=== PATIENT | female | born 1985 | race Caucasian/White ===

== ENCOUNTER 2016-05-11 21:50 | Emergency (ER) | payer MEDICAID ==
[2016-05-11] MEDS ORDERED: IBUPROFEN 600 MG TABLET PO STA (23:50)
[2016-05-11] MEDS ORDERED: IBUPROFEN 400 MG TABLET PO ONE (23:51)
== END 2016-05-12 02:41 | disposition home or self-care (01) ==
DX: N93.9 Abnormal uterine and vaginal bleeding, unspecified (principal)
CPT/HCPCS: 36415; 84702; 85025; 99283; A9270

== ENCOUNTER 2016-05-13 15:04 | Outpatient (CLI) | payer MEDICAID | END 2016-05-13 15:05 | DX: N93.9 Abnormal uterine and vaginal bleeding, unspecified (principal); L65.9 Nonscarring hair loss, unspecified ==

== ENCOUNTER 2016-05-13 20:53 | Outpatient (CLI) | payer MEDICAID | END 2016-05-13 20:54 | disposition home or self-care (01) | DX: D26.1 Other benign neoplasm of corpus uteri (principal); N93.9 Abnormal uterine and vaginal bleeding, unspecified; L65.9 Nonscarring hair loss, unspecified ==

== ENCOUNTER 2016-09-01 09:46 | Outpatient (CLI) | payer MEDICAID ==
[2016-09-01 13:22] LABS: HEMOGLOBIN A1C 0.66 g/dL
[2016-09-01 13:24] LABS: CALCIUM 9.8 mg/dL (8.5-10.3); CREATININE 0.7 mg/dL (0.4-1.0); POTASSIUM 4.2 mmol/L (3.5-5.0)
== END 2016-09-01 09:47 | disposition home or self-care (01) ==
LOC: LAB.N 09:46
PROVIDERS: ATTEND Physician Assistant
DX: E11.9 Type 2 diabetes mellitus without complications (principal)
CPT/HCPCS: 36415; 80048; 82043; 83036

== ENCOUNTER 2016-09-28 08:49 | Outpatient (CLI) | payer MEDICAID ==
[2016-09-28 13:01] LABS: CHOL/HDL RATIO 4.7 (<4.4); CHOLESTEROL 164 mg/dL; HDL CHOLESTEROL 35 mg/dL; TRIGLYCERIDES 127 mg/dL; VLDL CHOLESTEROL 25 mg/dL
== END 2016-09-28 08:50 | disposition home or self-care (01) ==
LOC: LAB.N 08:49
PROVIDERS: ATTEND Nurse Practitioner Gerontology
DX: E11.9 Type 2 diabetes mellitus without complications (principal)
CPT/HCPCS: 36415; 80061

== ENCOUNTER 2016-09-28 08:52 | Outpatient (CLI) | payer MEDICAID ==
[2016-09-28 12:39] LABS: HCT - HEMATOCRIT 38.4 % (37.0-47.0); HGB - HEMOGLOBIN 12.6 g/dL (12.0-16.0); MEAN CORPUSCULAR HEMOGLOBIN 26.9 pg (27.0-31.0); MEAN CORPUSCULAR HGB CONC 32.8 g/dL (32.0-36.0); MEAN CORPUSCULAR VOLUME 82.2 fL (81.0-99.0); RED BLOOD COUNT 4.67 10^6/uL (4.20-5.40); RED CELL DISTRIBUTION WIDTH 15.7 % (12.0-15.0); WHITE BLOOD COUNT 9.3 x10^3/uL (4.8-10.8)
[2016-09-28 13:30] LABS: THYROID STIMULATING HORMONE 2.79 uIU/mL (0.34-5.60)
[2016-09-28 13:39] LABS: FOLLICLE STIMULATING HORMONE 6.23 mIU/mL
== END 2016-09-28 08:53 | disposition home or self-care (01) ==
LOC: LAB.N 08:52
PROVIDERS: ATTEND Obstetrics & Gynecology
DX: Z13.29 Encounter for screening for other suspected endocrine disorder (principal); E28.2 Polycystic ovarian syndrome; Z13.0 Encounter for screening for diseases of the blood and blood-forming organs and certain disorders involving the immune mechanism
CPT/HCPCS: 36415; 80061; 83001; 84443

== ENCOUNTER 2016-10-22 13:48 | Outpatient (CLI) | payer MEDICAID ==
--- NOTE | 2016-10-22 15:41 | Mammography Report ---
DIGITAL DIAGNOSTIC BILATERAL MAMMOGRAM: 10/22/2016 CLINICAL INDICATION: Right axillary adenopathy. TECHNIQUE: Bilateral CC and MLO views, right true lateral and laterally exaggerated craniocaudal views. This is the patient's baseline examination. FINDINGS: The breasts demonstrate fatty replacement bilaterally. No suspicious masses, clustered microcalcifications, or regions of architectural distortion are identified. Bilateral axillary lymph nodes are noted, which do not appear enlarged. IMPRESSION: INCOMPLETE EXAMINATION. RECOMMENDATION: RIGHT BREAST ULTRASOUND TO EVALUATE THE PALPABLE AXILLARY ABNORMALITY. ULTRASOUND IS SCHEDULED FOR 10/27/2016 AT 12:45PM. BIRADS CATEGORY 0-INCOMPLETE. STANDARD QUALIFYING STATEMENTS 1. This examination was reviewed with the aid of Computer-Aided Detection (CAD). 2. A negative or benign imaging report should not delay biopsy if clinically suspicious findings are present. Consider surgical consultation if warranted. More than 5% of cancers are not identified by imaging. 3. Dense breasts may obscure an underlying neoplasm. JOB #: [id number] EXT JOB #: [id number] [place]
== END 2016-10-22 13:49 | disposition home or self-care (01) ==
LOC: DI 13:48
PROVIDERS: ATTEND Obstetrics & Gynecology
DX: R59.0 Localized enlarged lymph nodes (principal)
CPT/HCPCS: 77066

== ENCOUNTER 2016-10-27 12:37 | Outpatient (CLI) | payer MEDICAID ==
--- NOTE | 2016-10-27 14:04 | Ultrasound Report ---
RIGHT BREAST ULTRASOUND: 10/27/2016 CLINICAL HISTORY: Swelling in the axilla. TECHNIQUE: A high frequency transducer was utilized to evaluate the axilla. 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 FINDINGS: Normal fibrofatty tissue is present. Morphologically normal lymph nodes are incidental. There is no mass, distortion, hyperemia or adenopathy. IMPRESSION: NEGATIVE EXAMINATION. NO SUSPICIOUS FINDINGS. RECOMMENDATION: CLINICAL FOLLOWUP. NEGATIVE IMAGING SHOULD NOT DISSUADE FURTHER EVALUATION OF ANY SUSPICIOUS CHANGES. BIRADS CATEGORY 1-NEGATIVE. JOB #: [id number] EXT JOB #: [id number] [facility]
== END 2016-10-27 12:38 | disposition home or self-care (01) ==
LOC: DI 12:37
PROVIDERS: ATTEND Obstetrics & Gynecology
DX: R59.0 Localized enlarged lymph nodes (principal)
CPT/HCPCS: 76642

== ENCOUNTER 2016-12-06 13:44 | Outpatient (CLI) | payer MEDICAID ==
[2016-12-06 20:15] LABS: HEMOGLOBIN A1C 0.38 g/dL
== END 2016-12-06 13:45 | disposition home or self-care (01) ==
LOC: LAB.N 13:44
PROVIDERS: ATTEND Nurse Practitioner Gerontology
DX: E11.9 Type 2 diabetes mellitus without complications (principal)
CPT/HCPCS: 36415; 83036

== ENCOUNTER 2017-01-04 16:20 | Outpatient (CLI) | payer MEDICAID ==
[2017-01-04 16:38] LABS: BASOPHILS # (AUTO) 0.1 10^3/uL (0.0-0.1); BASOPHILS % (AUTO) 0.5 %; EOSINOPHILS # (AUTO) 0.2 10^3/uL (0.0-0.7); EOSINOPHILS % (AUTO) 1.3 %; HCT - HEMATOCRIT 30.7 % (37.0-47.0); HGB - HEMOGLOBIN 9.9 g/dL (12.0-16.0); LYMPHOCYTES # (AUTO) 4.1 10^3/uL (1.5-3.5); LYMPHOCYTES % (AUTO) 28.1 %; MEAN CORPUSCULAR HEMOGLOBIN 25.8 pg (27.0-31.0); MEAN CORPUSCULAR HGB CONC 32.1 g/dL (32.0-36.0); MEAN CORPUSCULAR VOLUME 80.4 fL (81.0-99.0); MEAN PLATELET VOLUME 6.9 fL (7.9-10.8); MONOCYTES # (AUTO) 0.8 10^3/uL (0.0-1.0); MONOCYTES % (AUTO) 5.2 %; NEUTROPHILS # (AUTO) 9.6 10^3/uL (1.5-6.6); NEUTROPHILS % (AUTO) 64.9 %; RED BLOOD COUNT 3.82 10^6/uL (4.20-5.40); RED CELL DISTRIBUTION WIDTH 15.4 % (12.0-15.0); UNCORRECTED WHITE BLOOD COUNT 14.7 x10^3/uL; WHITE BLOOD COUNT 14.7 x10^3/uL (4.8-10.8)
== END 2017-01-04 16:21 | disposition home or self-care (01) ==
LOC: LAB 16:20
PROVIDERS: ATTEND Obstetrics & Gynecology
DX: N92.1 Excessive and frequent menstruation with irregular cycle (principal)
CPT/HCPCS: 36415; 85025

== ENCOUNTER 2017-03-31 08:00 | Outpatient (CLI) | payer MEDICAID ==
[2017-03-31 19:35] LABS: HB2 TOTAL 11.9 g/dL; HEMOGLOBIN A1C 0.47 g/dL; HEMOGLOBIN A1C % 5.8 % (4.6-6.2)
== END 2017-03-31 08:01 ==
LOC: LAB.N 08:00
PROVIDERS: ATTEND Nurse Practitioner Gerontology
DX: E11.9 Type 2 diabetes mellitus without complications (principal)
CPT/HCPCS: 36415; 83036

== ENCOUNTER 2017-04-14 16:12 | Outpatient (CLI) | payer MEDICAID | END 2017-04-14 16:13 | disposition home or self-care (01) | LOC: LAB.R 16:12 | PROVIDERS: ATTEND Obstetrics & Gynecology | DX: Z11.3 Encounter for screening for infections with a predominantly sexual mode of transmission (principal) | CPT/HCPCS: 87491; 87591 ==

== ENCOUNTER 2017-04-15 14:49 | Outpatient (CLI) | payer MEDICAID | END 2017-04-15 14:50 | disposition home or self-care (01) | LOC: LAB.N 14:49 | PROVIDERS: ATTEND Obstetrics & Gynecology | DX: O20.0 Threatened abortion (principal) | CPT/HCPCS: 36415; 84144; 84702 ==

== ENCOUNTER 2017-06-09 16:23 | Outpatient (CLI) | payer MEDICAID | END 2017-06-09 16:24 | LOC: LAB.R 16:23 | PROVIDERS: ATTEND Nurse Practitioner Gerontology | DX: R07.0 Pain in throat (principal) | CPT/HCPCS: 87070 ==

== ENCOUNTER 2017-08-10 15:23 | Outpatient (CLI) | payer MEDICAID ==
[2017-08-10 18:58] LABS: HGB - HEMOGLOBIN 12.7 g/dL (12.0-16.0); MEAN CORPUSCULAR HEMOGLOBIN 25.7 pg (27.0-31.0); MEAN CORPUSCULAR HGB CONC 31.7 g/dL (32.0-36.0); MEAN CORPUSCULAR VOLUME 81.1 fL (81.0-99.0); MEAN PLATELET VOLUME 7.8 fL (7.9-10.8); RED BLOOD COUNT 4.93 10^6/uL (4.20-5.40); RED CELL DISTRIBUTION WIDTH 17.2 % (12.0-15.0); WHITE BLOOD COUNT 13.1 x10^3/uL (4.8-10.8)
[2017-08-10 19:08] LABS: HB2 TOTAL 13.8 g/dL; HEMOGLOBIN A1C 0.58 g/dL
== END 2017-08-10 15:24 | disposition home or self-care (01) ==
LOC: LAB.N 15:23
PROVIDERS: ATTEND Nurse Practitioner Obstetrics & Gynecology
DX: E11.65 Type 2 diabetes mellitus with hyperglycemia (principal); N73.9 Female pelvic inflammatory disease, unspecified
CPT/HCPCS: 36415; 83036; 85027

== ENCOUNTER 2017-08-10 15:33 | Outpatient (CLI) | payer MEDICAID | END 2017-08-10 15:34 | disposition home or self-care (01) | LOC: LAB.R 15:33 | PROVIDERS: ATTEND Nurse Practitioner Obstetrics & Gynecology | DX: N73.9 Female pelvic inflammatory disease, unspecified (principal) | CPT/HCPCS: 87480; 87510; 87660 ==

== ENCOUNTER 2017-08-10 16:47 | Outpatient (CLI) | payer MEDICAID ==
[2017-08-10] MEDS ORDERED: IOPAMIDOL-300 50 ML VIAL ONE (17:03)
[2017-08-10] MEDS ORDERED: IOPAMIDOL-300 100 ML VIAL ONE (17:03)
[2017-08-10 17:19] LABS: CREATININE 0.8 mg/dL (0.4-1.0)
[2017-08-10] MEDS ORDERED: IOPAMIDOL-300 50 ML VIAL PO ONE (19:00)
[2017-08-10] MEDS ORDERED: IOPAMIDOL-300 100 ML VIAL IVP ONE (19:02)
--- NOTE | 2017-08-10 19:43 | CT Preliminary Report ---
Exam: CT ABDOMEN/PELVIS W/ IMPRESSION: Left ovarian cyst measures 3.3 cm. Recommend a 6-12 week follow-up pelvic ultrasound. [facility] SITE ID: [id number]
--- NOTE | 2017-08-10 19:43 | CT Report ---
EXAM: CT ABDOMEN AND PELVIS EXAM DATE: 08/10/2017 06:58 PM. CLINICAL HISTORY: PELVIC AND PERINEAL PAIN. COMPARISONS: None. TECHNIQUE: Routine helical CT imaging was performed through the abdomen and pelvis. IV contrast: 100 mL Isovue 300. Enteric contrast: Yes. Reconstructions: Coronal and sagittal. In accordance with CT protocol optimization, one or more of the following dose reduction techniques w ere utilized for this exam: automated exposure control, adjustment of mA and/or KV based on patient s ize, or use of iterative reconstructive technique. FINDINGS: Lung Bases: No acute findings. Liver: Normal. No masses. Gallbladder/Bile Ducts: Status post cholecystectomy. No bile duct dilatation. Spleen: Normal. Pancreas: Normal. Adrenal Glands: Normal. Kidneys: Normal. No masses or hydronephrosis. Peritoneal Cavity/Bowel: Normal. No free fluid, free air or adenopathy. No masses or acute inflammato ry process. The appendix is well visualized and normal. Pelvic Organs: The bladder and uterus appear unremarkable. Left ovarian cyst measures 3.3 cm. Vasculature: No aneurysms or other significant abnormality. Bones: No significant abnormality. IMPRESSION: Left ovarian cyst measures 3.3 cm. Recommend a 6-12 week follow-up pelvic ultrasound. [facility] Referring Provider Line: [phone] SITE ID: [id number]
== END 2017-08-10 16:48 | disposition home or self-care (01) ==
LOC: LAB 16:47 → DI 16:48
PROVIDERS: ATTEND Nurse Practitioner Obstetrics & Gynecology
DX: R10.2 Pelvic and perineal pain (principal); N83.202 Unspecified ovarian cyst, left side; E11.65 Type 2 diabetes mellitus with hyperglycemia; N73.9 Female pelvic inflammatory disease, unspecified
CPT/HCPCS: 36415; 74177; 82565; 83036; 85027; 87480; 87510; 87660; Q9967

== ENCOUNTER 2017-08-16 13:10 | Outpatient (CLI) | payer MEDICAID | END 2017-08-16 13:11 | disposition home or self-care (01) | LOC: SC 13:10 | PROVIDERS: ATTEND Internal Medicine Pulmonary Disease | DX: G47.10 Hypersomnia, unspecified (principal); R06.83 Snoring; J34.2 Deviated nasal septum; E66.9 Obesity, unspecified; G43.909 Migraine, unspecified, not intractable, without status migrainosus; Z68.41 Body mass index [BMI] 40.0-44.9, adult; J45.909 Unspecified asthma, uncomplicated; E11.9 Type 2 diabetes mellitus without complications | CPT/HCPCS: 99203; 99212 ==

== ENCOUNTER 2017-08-28 21:00 | Outpatient (CLI) | payer MEDICAID | END 2017-08-28 21:01 | disposition home or self-care (01) | LOC: SC 21:00 | PROVIDERS: ATTEND Internal Medicine Pulmonary Disease | DX: G47.61 Periodic limb movement disorder (principal) | CPT/HCPCS: 95810 ==

== ENCOUNTER 2017-09-19 08:46 | Outpatient (CLI) | payer MEDICAID | END 2017-09-19 08:47 | disposition home or self-care (01) | LOC: SC 08:46 | PROVIDERS: ATTEND Nurse Practitioner Family | DX: R06.83 Snoring (principal); G47.00 Insomnia, unspecified; G47.61 Periodic limb movement disorder | CPT/HCPCS: 99212; 99215 ==

== ENCOUNTER 2020-01-01 10:22 | Outpatient (CLI) | payer MEDICAID, OTHER ==
[2020-01-01 18:39] LABS: BASOPHILS % (AUTO) 0.4 %; EOSINOPHILS # (AUTO) 0.1 10^3/uL (0.0-0.7); HGB - HEMOGLOBIN 13.7 g/dL (12.0-16.0); LYMPHOCYTES # (AUTO) 2.9 10^3/uL (1.5-3.5); LYMPHOCYTES % (AUTO) 29.7 %; MEAN CORPUSCULAR HEMOGLOBIN 27.6 pg (27.0-31.0); MEAN CORPUSCULAR HGB CONC 31.1 g/dL (32.0-36.0); MEAN CORPUSCULAR VOLUME 88.7 fL (81.0-99.0); MEAN PLATELET VOLUME 9.8 fL (7.9-10.8); MONOCYTES # (AUTO) 0.6 10^3/uL (0.0-1.0); MONOCYTES % (AUTO) 6.4 %; NEUTROPHILS % (AUTO) 62.2 %; PLT - PLATELET COUNT 323 10^3/uL (130-450); RED BLOOD COUNT 4.96 10^6/uL (4.20-5.40); RED CELL DISTRIBUTION WIDTH 14.4 % (12.0-15.0); WHITE BLOOD COUNT 9.6 x10^3/uL (4.8-10.8)
[2020-01-01 18:48] LABS: ALBUMIN 3.8 g/dL (3.2-5.5); ALKALINE PHOSPHATASE 75 IU/L (42-121); ALT ALANINE AMINOTRANSFERASE 20 IU/L (10-60); AST ASPARTATE AMINOTRANSFERASE 17 IU/L (10-42); BILIRUBIN,TOTAL 0.5 mg/dL (0.2-1.0); BUN - BLOOD UREA NITROGEN 14 mg/dL (6-20); CARBON DIOXIDE - CO2 27 mmol/L (21-32); CHLORIDE 103 mmol/L (101-111); CHOL/HDL RATIO 4.6 (<4.4); CHOLESTEROL 172 mg/dL; CREATININE 0.7 mg/dL (0.4-1.0); GLUCOSE 99 mg/dL (70-100); HDL CHOLESTEROL 37 mg/dL; LDL CHOLESTEROL,CALCULATED 106 mg/dL; LDL/HDL RATIO 2.9 (<4.4); SODIUM 136 mmol/L (135-145); TOTAL PROTEIN 7.8 g/dL (6.7-8.2); VLDL CHOLESTEROL 29 mg/dL
== END 2020-01-01 23:59 | disposition home or self-care (01) ==
LOC: LAB.WCP 10:22
PROVIDERS: ATTEND Nurse Practitioner Family
DX: E03.9 Hypothyroidism, unspecified (principal); E11.9 Type 2 diabetes mellitus without complications; D50.9 Iron deficiency anemia, unspecified; E78.1 Pure hyperglyceridemia; E66.9 Obesity, unspecified; E55.9 Vitamin D deficiency, unspecified
CPT/HCPCS: 36415; 80053; 80061; 82306; 83036; 83721; 84443; 85025

== ENCOUNTER 2020-01-15 09:06 | Outpatient (CLI) | payer OTHER ==
[2020-01-15 12:51] LABS: HCG,QUALITATIVE BLOOD NEGATIVE
== END 2020-01-15 23:59 | disposition home or self-care (01) ==
LOC: LAB.WCP 09:06
PROVIDERS: ATTEND Nurse Practitioner Family
DX: N91.2 Amenorrhea, unspecified (principal)
CPT/HCPCS: 36415; 84703

== ENCOUNTER 2020-03-31 15:55 | Outpatient (CLI) | payer OTHER ==
[2020-03-31 18:42] LABS: CALCIUM 9.2 mg/dL (8.5-10.3); CREATININE 0.7 mg/dL (0.4-1.0)
== END 2020-03-31 23:59 | disposition home or self-care (01) ==
LOC: LAB.WCP 15:55
PROVIDERS: ATTEND Nurse Practitioner Family
DX: R73.03 Prediabetes (principal); E55.9 Vitamin D deficiency, unspecified
CPT/HCPCS: 36415; 80048; 82306; 83036

== ENCOUNTER 2020-07-20 07:07 | Outpatient (CLI) | payer OTHER ==
--- NOTE | 2020-07-20 09:48 | Ultrasound Report ---
PROCEDURE: Pelvic w/Transvaginal INDICATIONS: PCOS TECHNIQUE: Real-time scanning was performed of the pelvic organs, with image documentation. Additional endovagi nal scanning was necessary due to incomplete visualization of the adnexal and endometrial structures by transabdominal scanning. COMPARISON: 05/13/2016 Correlation is made with the accompanying abdominal ultrasound, 07/20/2020. FINDINGS: No pathologic free abdominal or pelvic fluid. Uterus: Uterus is normal in size at 10 x 4.4 x 6.3 cm. The endometrium measures 8 mm in combined th ickness. Nabothian cysts are incidentally noted. Ovaries: The right ovary measures 3.1 x 2.2 x 1.9 cm and the left ovary measures 2.2 x 2.1 x 2.2 cm. No significant ovarian abnormalities are seen. There are more than 12 follicles seen on each side. No adnexal masses are seen. IMPRESSION: More than 12 follicles can be seen involving each ovary, which is consistent with the given history o f polycystic ovarian syndrome. Reviewed by: Donald Kumari MD on 07/20/2020 8:46 AM LUCY Approved by: Donald Kumari MD on 07/20/2020 8:46 AM LUCY Station ID: [id number]
== END 2020-07-20 07:08 | disposition home or self-care (01) ==
LOC: DI 07:07
PROVIDERS: ATTEND Obstetrics & Gynecology
DX: N92.6 Irregular menstruation, unspecified (principal); E28.2 Polycystic ovarian syndrome; E66.9 Obesity, unspecified; R93.2 Abnormal findings on diagnostic imaging of liver and biliary tract

== ENCOUNTER 2020-07-20 07:08 | Outpatient (CLI) | payer OTHER ==
--- NOTE | 2020-07-23 09:13 | Ultrasound Report ---
PROCEDURE: Abdomen Limited INDICATIONS: ABDOMINAL PAIN TECHNIQUE: Real-time focused scanning was performed of the abdomen, with image documentation. COMPARISON: Correlation is made with the prior CT 08/10/2017. Correlation is also made with the accom panying pelvic ultrasound, 07/20/2020. FINDINGS: The liver demonstrates normal size and demonstrates increased echogenicity. No liver lesio ns are detected. The gallbladder has been removed. No biliary ductal dilatation is seen. The common bile duct measures 5 mm. The visualized pancreas is within normal limits. The visualized right kidney is unremarkable. Dedicated images were performed at the area of clinical concern of the mid abdominal wall. No ventral hernia or other significant abnormality can be seen at this site. Overall scan quality is limited secondary to increased bowel gas and body habitus. IMPRESSION: Negative for ventral wall hernia. The gallbladder demonstrates a normal sonographic appearance. No biliary dilatation is seen. Increased liver echogenicity is seen. This is nonspecific, yet it is most commonly attributed to fatt y infiltration. Reviewed by: Donald Kumari MD on 07/20/2020 8:49 AM LUCY Approved by: Donald Kumari MD on 07/20/2020 8:49 AM LUCY Station ID: [id number]
== END 2020-07-20 07:09 | disposition home or self-care (01) ==
LOC: DI 07:08
PROVIDERS: ATTEND Nurse Practitioner Family
DX: R93.2 Abnormal findings on diagnostic imaging of liver and biliary tract (principal)

== ENCOUNTER 2020-08-04 15:05 | Outpatient (CLI) | payer OTHER ==
[2020-08-04 15:55] LABS: BASOPHILS % (AUTO) 0.3 %; EOSINOPHILS # (AUTO) 0.1 10^3/uL (0.0-0.7); EOSINOPHILS % (AUTO) 0.9 %; HCT - HEMATOCRIT 40.3 % (37.0-47.0); LYMPHOCYTES # (AUTO) 3.1 10^3/uL (1.5-3.5); LYMPHOCYTES % (AUTO) 22.7 %; MEAN CORPUSCULAR HEMOGLOBIN 27.8 pg (27.0-31.0); MEAN CORPUSCULAR HGB CONC 32.3 g/dL (32.0-36.0); MEAN CORPUSCULAR VOLUME 86.1 fL (81.0-99.0); MEAN PLATELET VOLUME 9.4 fL (7.9-10.8); MONOCYTES # (AUTO) 0.9 10^3/uL (0.0-1.0); MONOCYTES % (AUTO) 6.3 %; NEUTROPHILS # (AUTO) 9.5 10^3/uL (1.5-6.6); NEUTROPHILS % (AUTO) 69.5 %; PLT - PLATELET COUNT 298 10^3/uL (130-450); RED BLOOD COUNT 4.68 10^6/uL (4.20-5.40); RED CELL DISTRIBUTION WIDTH 14.4 % (12.0-15.0); WHITE BLOOD COUNT 13.6 x10^3/uL (4.8-10.8)
[2020-08-04 16:06] LABS: ALBUMIN 4.1 g/dL (3.2-5.5); BILIRUBIN,TOTAL 0.3 mg/dL (0.2-1.0); CALCIUM 9.1 mg/dL (8.5-10.3); CREATININE 0.6 mg/dL (0.4-1.0); POTASSIUM 3.7 mmol/L (3.5-5.0); TOTAL PROTEIN 8.4 g/dL (6.7-8.2)
[2020-08-04 16:23] LABS: THYROID STIMULATING HORMONE 3.4 uIU/mL (0.34-5.60)
[2020-08-04 16:28] LABS: PROLACTIN 9.05 ng/mL
[2020-08-04 16:51] LABS: FOLLICLE STIMULATING HORMONE 3.39 mIU/mL
[2020-08-04 20:39] LABS: ESTIMATED AVERAGE GLUCOSE 123 mg/dL (70-100); HEMOGLOBIN A1c% 5.9 % (4.27-6.07)
[2020-08-05 09:51] LABS: ESTRADIOL 293 pg/mL
[2020-08-07 06:51] LABS: 17-HYDROXYPREGNENOLONE 37 ng/dL
[2020-08-14 16:56] LABS: DHEA SULFATE 303 mcg/dL (23-266)
== END 2020-08-04 15:06 | disposition home or self-care (01) ==
LOC: LAB 15:05
PROVIDERS: ATTEND Obstetrics & Gynecology
DX: Z01.812 Encounter for preprocedural laboratory examination (principal); R87.619 Unspecified abnormal cytological findings in specimens from cervix uteri; R87.4 Abnormal immunological findings in specimens from female genital organs; N92.6 Irregular menstruation, unspecified; Z13.1 Encounter for screening for diabetes mellitus; E28.2 Polycystic ovarian syndrome; Z20.822 Contact with and (suspected) exposure to COVID-19
CPT/HCPCS: 36415; 80053; 82306; 82626; 82627; 82670; 83001; 83036; 84143; 84146; 84403; 84443; 85025; 85027; 86850; 86900; 86901; 86920

== ENCOUNTER 2020-08-07 06:17 | Day surgery (SDC) | payer OTHER ==
--- NOTE | 2020-08-06 21:00 | HISTORY & PHYSICAL EXAMINATION ---
HPI - History of Present Illness HPI Comment/Other: CC: PreOp Consult HPI: Pt is here today for a preop consult for cold knife cone biopsy with hysteroscopy ...................................................................RADHA Dueñas July 30, 2020 2:33 PM Patient is a 35-year-old here for preop assessment for cold knife cone biopsy with hysteroscopy D&C. Patient was last seen in clinic on 07/07/20 for a pap smear. Pap smear returned as suspicious for adenocarcinoma. Patient has had normal pap smears in the past. She has had irregular menses with oligomenorrhea coouple with dysfunctional uteirne bleeding. We reviewed that adenocarcinoma can represent cervical pathology but it can also represent endometrial pathology. For this reason, I am recommending further assessment with Cold knife cone biopsy and hysteroscopy D&C. Patient is in agr eement. No changes in health hx since time of prior exam. Allergies: No Known Allergies Medications: D-5000 125 MCG (5000 UT) ORAL TABLET (CHOLECALCIFEROL) Take one tablet by mouth daily; Route: ORAL MISOPROSTOL 200 MCG ORAL TABLET (MISOPROSTOL) Place one tablet in the vagina on the night prior to the procedure; Route: ORAL LOESTRIN 1/20 (21) 1-20 MG-MCG ORAL TABLET (NORETHINDRONE ACET-ETHINYL EST) Take one tablet by mouth daily; Route: ORAL PROAIR HFA 108 (90 BASE) MCG/ACT INHALATION AEROSOL SOLUTION (ALBUTEROL SULFATE) 2 puffs orally up to every 4 hrs as needed for wheezing; Route: INHALATION VITAMIN D (ERGOCALCIFEROL) 39946 UNIT ORAL CAPSULE (ERGOCALCIFEROL) Take one tablet by mouth weekly for eight weeks; Route: ORAL NYSTATIN 135882 UNIT/GM EXTERNAL CREAM (NYSTATIN) Apply to affected areas daily until symptoms resolved; Route: EXTERNAL Problems: Preoperative examination (ICD-V72.84) (IRI73-G29.818) Abnormal Pap Smear (ICD-795.00) (FCV73-R95.619) Abfnd Pap smear HPV DNA (ICD-079.4) (TTK90-U31.4) Screening, cervical cancer (ICD-V76.2) (HIZ58-M77.4) Preconception counseling (ICD-V26.49) (JGP91-G18.69) Preventive health care (ICD-V70.0) (TWC07-Q07.00) Irregular menses (ICD-626.4) (YPY41-L31.6) Screening for hypercholesterolemia (ICD-V77.91) (ISW66-C53.220) Screening for vitamin D deficiency (ICD-V77.99) (BGY92-C53.21) Screening for diabetes mellitus (ICD-V77.1) (HHP50-U78.1) Irritant rhinitis (ICD-472.0) (RHZ95-K23.0) Abdominal pain (ICD-789.00) (VYU44-H95.9) Streptococcal pharyngitis (ICD-034.0) (CND22-M78.0) Exudative pharyngitis (ICD-462) (TAB37-R78.9) Contraception counseling (ICD-V25.09) (DNI88-B41.09) Prediabetes (ICD-790.29) (SSG35-A46.03) Polycystic ovary syndrome (ICD-256.4) (XGY22-S61.2) Obesity (ICD-278.00) (PCP73-O07.9) Vitamin D deficiency (ICD-268.9) (STM51-J23.9) Alopecia (ICD-704.00) (ILE01-T29.9) Hypothyroid (ICD-244.9) (DXC42-H78.9) Missed period (ICD-626.8) (CZI23-T48.2) Torsion of ovary and ovarian pedicle, unspecified side (ICD-620.5) (ICD10- N83.519) Other ovarian cyst, left side (FJL92-Y41.292) Abdominal pain, chronic (ICD-789.00) (VTA45-Q45.9) Cervicitis (ICD-616.0) (NKO18-G32) Fibromyalgia (ICD-729.1) (HTS19-Q41.7) Sciatica, right side (ICD-724.3) (WQR49-T16.31) Sciatica (ICD-724.3) (DWD42-W17.30) Snoring (ICD-786.09) (CTG38-X80.83) Encounter for surgical aftercare following surgery on the skin and subcutaneous tissue (ICD-V58.77) (INB50-D86.817) Sleep apnea (ICD-780.57) (ZHS27-B70.30) Throat pain (ICD-784.1) (NIE23-Y24.0) Pityriasis versicolor (ICD-111.0) (BOY33-Q85.0) Tubal without intrauterine (ICD-633.10) (WZC52-X41.109) Skin tags (ICD-701.9) (YVI71-Z34.8) Deviated nasal septum (ICD-470) (GUL75-B86.2) Viral upper respiratory tract infection (ICD-465.9) (JUH07-T26.9) Abnormal uterine bleeding (ICD-626.9) (HVE48-H77.9) Well adult exam (ICD-V70.0) (NIW45-P45.00) Otalgia, bilateral (ICD-388.70) (AOQ57-O13.03) Elevated blood pressure reading without diagnosis of hypertension (ICD-796.2) (IVD40-U64.0) Encounter for other specified prophylactic measures (ICD-V07.39) (IVY04-J00.8) Travel consult (ICD-V65.49) (AIT33-F50.89) Diabetes mellitus, type 2 (ICD-250.00) (URO06-R91.9) Diabetes mellitus, type 2 (ICD-250.00) (NQA33-L25.9) Tinea corporis (ICD-110.5) (TPJ75-W38.4) Family history of malignant neoplasm of other genital organs (BKU66-D21.49) Iron deficiency anemia (ICD-280.9) (NZO09-W72.9) Hair loss (ICD-704.00) (FSU56-T00.9) Vaginal bleeding, abnormal (ICD-626.9) (XVH95-S48.9) Asthma (ICD-493.90) (GRQ04-Y72.909) HPV (ICD-079.4) (FNM77-L90.7) Migraine (ICD-346.90) (NOX69-R27.909) Hypertriglyceridemia (ICD-272.1) (IAS06-P25.1) Metabolic syndrome (ICD-277.7) (RAC31-G87.81) Obesity (ICD-278.00) (IOR88-U45.9) Depression (ICD-311) (ESQ08-I25.9) Vital Signs: Patient Profile: 35 Years Old Female Height: 63 inches Weight: 275 pounds BMI: 48.89 BP sittin / 75 Cuff size: large Vitals Entered By: RADHA Dueñas (July 30, 2020 2:33 PM) Meds Reviewed: Done Allergies Reviewed: Done No known allergies: T Questionnaire Would you like to become in the next year? Unsure Are you currently using contraception? No Would you like to discuss your control options today? 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 Physical Constitutional: GEN: NAD HEAD: NCAT EYES: No scleral icterus or conjunctival injection NECK: No cervical LAD or TM CV: RRR RESP: CTAB, normal effort ABD: S&NT/ND PSYCH: appropriate affect NEURO: alert and oriented, normal gait and coordination EXT: WWP VULVA: Normal external female genitalia. Normal Bartholin's, [place]'s, urethra meatus and anus. No inguinal lymphadenopathy. VAGINA: Speculum exam reveals normal vaginal mucosa, pink, moist, rugated. Physiologic discharge and no lesions or abnormal discharge. Cervix: Parous without lesions or disharge Uterus: Mobile, NT, normal size and contour ADNEXA: no adnexal masses or tenderness. Exam limited by habitus Impression & Recommendations: Problem # 1: Preoperative examination (ICD-V72.84) (FJE90-G41.818) Reviewed risks/benefits/alternatives to cold knife cone biopsy and hysteroscopy D&C with possible /polpectomy Risks include, but are not limited to, bleeding, infection, damage to neatby tissue and organs. On average, expected EBL is minimal. In the event of an unanticipated blood loss, patient is willing to undergo transfusion. Risks of blood transfusion include infection as well as transfusion reaction Risk of HIV 1/2million nationwide Risk of Hepatitis 1/1 million Risks of transfusion reaction and mgt reviewed Infection risk low given that no incisions lane be made and we will be using physiologic orifices. Will provide IV abx in the event of uterine perforation. Damage to nearby tissue and organs was reviewed with emphasis on uterine perforation and management, which can include surgical intervention based on bleeding risk. Reviewed management of complications and efforts to avoid such outcomes but r eviewed that they may occur despite our best efforts. Reviewed occasional risk of bladder perforation with CKC. Patient is aware that she will undergo pelvic rest for 6 weeks of recovery Patient agreed to the aforementioned procedure and written informed consent was obtained. Medications Added to Medication List This Visit: 1) D-5000 125 Mcg (5000 Ut) Oral Tablet (Cholecalciferol) .... Take one tablet by mouth daily 2) Misoprostol 200 Mcg Oral Tablet (Misoprostol) .... Place one tablet in the vagina on the night prior to the procedure Other Orders: PRE OP -20353 (CPT-15952) Patient Portal: [id number] Gender ID Identifies as Female P: 4 A: 3 SAB: 3 L: 3 LMP: 12/02/2019 Height: 63 (07/07/2020 10:04:00 AM) Weight: 275 Gonnorhea: negative (04/30/2015 2:58:14 PM) Chlamydia: negative (04/30/2015 2:58:14 PM) Is pt sexualy active? 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
--- OUTSIDE RECORDS SUMMARY | 2020-08-07 06:20 | EXTERNAL MEDICAL SUMMARY RPT | Continuity of Care Document ---
:1985 Demographics Phone Unavailable Preferred Language Turkish Marital Status Unknown Religion Affiliation Unknown Race Unknown Ethnic Group Unknown Author Organization [facility] Address [address] [phone] Phone Care Team Providers Name Role Phone Ally Engel Unavailable Unavailable Allergies Encounters Medications date description facility 20200704 Acetaminophen 325 MG / Hydrocodone Sue rtrate 5 MG Oral [facility] Tablet 20200704 cefpodoxime 200 MG Oral Tablet [facility] 20200704 Ondansetron 4 MG Disintegrating Tablet [facility] 67313021 Sulfamethoxazole 800 MG / Trimethoprim 160 MG [facility] Tablet Problems date description facility 20200526 Upper abdominal pain, unspecified [facility] Procedures date description facility 20200704 [facility] 20200629 [facility] 20200526 [facility] Results Vital Signs date measurement value source 20200526 weight_standard 269.85 lb 20200526 weight_metric 122.4 kg 20200526 temperature_standard 98 F 20200526 temperature_metric 36.67 C 20200526 respiration_rate 18 /min 14169751 height_standard 62 in 20200526 height_metric 157.48 cm 51160922 heart_rate 78 /min 60319364 BP_systolic 130 mm[Hg] 94414758 BP_diastolic 76 mm[Hg] 06952408 BMI 49.3 kg/m2 16995887 weight_standard 124.74 lb 31102758 weight_metric 56.58 kg 84725513 temperature_standard 98.2 F 20200629 temperature_metric 36.78 C 22473879 respiration_rate 18 /min 49390562 height_standard 62 in 00215911 height_metric 157.48 cm 28785423 heart_rate 87 /min 34508483 BP_systolic 130 mm[Hg] 02589117 BP_diastolic 80 mm[Hg] 33211370 BMI 50.3 kg/m2 11122118 weight_standard 124.74 lb 08838330 weight_metric 56.58 kg 20200704 temperature_standard 98.1 F 20200704 temperature_metric 36.72 C 20200704 respiration_rate 18 /min 20200704 height_standard 62 in 20200704 height_metric 157.48 cm 20200704 heart_rate 84 /min 20200704 BP_systolic 119 mm[Hg] 20200704 BP_diastolic 68 mm[Hg] 20200704 BMI 50.3 kg/m2
[2020-08-07] MEDS ORDERED: ACETAMINOPHEN 1,000 MG/100 ML 100 ML IV ONE (06:23)
[2020-08-07] MEDS ORDERED: GABAPENTIN 400 MG CAPSULE ONE (06:24)
[2020-08-07] MEDS ORDERED: CELECOXIB 100 MG CAPSULE PO ONE (06:24)
[2020-08-07] MEDS ORDERED: ceFAZolin 2 GM/50 ML 2 GM/50 ML BAG IV ONE (06:25)
[2020-08-07] MEDS ORDERED: LACTATED RINGERS 1,000 ML IV ONE ×2 (06:25→09:57)
[2020-08-07 06:53] LABS: HCG UR QUAL NEGATIVE
[2020-08-07] MEDS ORDERED: fentaNYL 100 MCG/2 ML VIAL ONE (07:04)
[2020-08-07] MEDS ORDERED: PROPOFOL 200 MG/20 ML VIAL IVP ONE (07:04)
[2020-08-07] MEDS ORDERED: LIDOCAINE-MPF 2% 5 ML VIAL ONE (07:04)
[2020-08-07] MEDS ORDERED: MIDAZOLAM 2 MG/2 ML VIAL ONE (07:04)
[2020-08-07] MEDS ORDERED: SILVER NITRATE APPLICATOR TOP ONE (07:14)
[2020-08-07] MEDS ORDERED: LIDOCAINE 1% 50 ML MDV ONE (07:15)
[2020-08-07] MEDS ORDERED: POTASSIUM IODIDE/IODINE 14 ML SOLUTION ONE (07:15)
[2020-08-07] MEDS ORDERED: BUPIVACAINE 0.25% PF 30 ML VIAL ONE (07:15)
[2020-08-07] MEDS ORDERED: HYDROmorphone 0.5 MG/0.5 ML SYRINGE IVP PRN (07:23)
[2020-08-07] MEDS ORDERED: METOCLOPRAMIDE 10 MG/2 ML VIAL IVP PRN (07:23)
[2020-08-07] MEDS ORDERED: NALOXONE 0.4 MG/ML VIAL IVP PRN (07:23)
[2020-08-07] MEDS ORDERED: ATROPINE ABBOJECT 1 MG/10 ML SYRINGE IVP PRN (07:23)
[2020-08-07] MEDS ORDERED: ONDANSETRON 4 MG/2 ML VIAL IVP PRN (07:23)
[2020-08-07] MEDS ORDERED: fentaNYL 100 MCG/2 ML VIAL IVP PRN (07:23)
[2020-08-07] MEDS ORDERED: MORPHINE 2 MG/ML CARPUJECT IVP PRN (07:23)
[2020-08-07] MEDS ORDERED: ePHEDrine 50 MG/ML VIAL IVP PRN (07:23)
--- NOTE | 2020-08-07 07:23 | ANESTHESIA ---
Pre-Anesthesia VS, & Labs - Diagnosis abnormal pap - Procedure myosure hysteroscopy, D&C Vital Signs: Temp Pulse Resp BP Pulse Ox 35.9 C L 75 18 144/78 H 98 08/07/20 06:32 08/07/20 06:32 08/07/20 06:32 08/07/20 06:32 08/07/20 06:32 Height: 5 ft 3 in Weight (kg): 124 kg Body Mass Index: 48.4 BMI Classification: Morbidly Obese - NPO >8 hours - Is Patient ?: Yes, No - Lab Results Current Lab Results: Laboratory Tests 08/07/20 06:49: POC Whole Bld Glucose 127 H Lab results reviewed: Yes Home Medications and Allergies Home Medications: Ambulatory Orders No Known Home Medications 08/04/20 No Known Home Medications 08/04/20 Allergies/Adverse Reactions: Allergies Allergy/AdvReac Type Severity Reaction Status Date / Time No Known Drug Allergies Allergy Verified 03/07/16 21:18 Anes History & Medical History - Anesthetic History Anesthesia Complications: reports: No previous complications Family history of Anesthesia Complications: Denies Family history of Malignant Hyperthermia: Denies - Medical History Cardiovascular: reports: None Pulmonary: reports: Asthma, Pneumonia Gastrointestinal: reports: None Urinary: reports: None Musculoskeletal: reports: None Endocrine/Autoimmune: reports: Type 2 diabetes, HyPOthyroidism Skin: reports: Eczema, Rosacea Smoking Status: Never smoker - Surgical History General: reports: Cholecystectomy Gynecologic: reports: section, Dilation and currettage Exam General: Alert, Oriented x3, Cooperative Dental: WNL Mouth Openin Fingerbreadth Neck Mobility: Normal Mallampati classification: II Thyromental Distance: 4-6 cm Respiratory: Lungs clear, Normal breath sounds, No respiratory distress Cardiovascular: Regular rate Neurological: Normal speech Mental/Cognitive Status: Alert/Oriented X3, Normal for patient Cognitive Status: Within normal limits Plan Anesthesia Type: General Consent for Procedure(s) Verified and Reviewed: Yes Code Status: Attempt Resuscitation ASA classification: 2-Mild systemic disease Is this case an emergency?: No
[2020-08-07] MEDS ORDERED: LACTATED RINGERS 1,000 ML IV SCH (08:00)
[2020-08-07] MEDS ORDERED: BUPIVACAINE 0.5%-EPI 1:200000 PF 30 ML VIAL ONE (08:31)
[2020-08-07] MEDS ORDERED: LIDOCAINE MPF 2%-EPI 1:200000 20 ML VIAL ONE (08:31)
[2020-08-07] MEDS ORDERED: BUPIVACAINE 0.5%-EPI 1:200000 PF 30 ML VIAL SUBQ ONE ×2 (08:39)
[2020-08-07] MEDS ORDERED: LIDOCAINE 1% 50 ML MDV SUBQ ONE ×2 (08:41)
[2020-08-07] MEDS ORDERED: POTASSIUM IODIDE/IODINE 14 ML SOLUTION TOP ONE (09:11)
[2020-08-07] MEDS ORDERED: ONDANSETRON 4 MG/2 ML VIAL ONE (09:14)
[2020-08-07] MEDS ORDERED: DEXAMETHASONE 4 MG/ML VIAL ONE (09:15)
[2020-08-07] MEDS ORDERED: FERRIC SUBSULFATE 8 ML SOLUTION (FOR OR) TOP ONE (09:34)
[2020-08-07] MEDS ORDERED: SEVOFLURANE 250 ML LIQUID INH ONE (09:36)
--- NOTE | 2020-08-07 10:27 | OPERATIVE REPORT ---
Operative Report - General Planned Procedure: Hysteroscopy D&C Cold knife cone biopsy Pre-Op Diagnosis: Suspicion for adenocarcinoma on pap smear Procedure Performed: Hysteroscopy D&C Cold knife cone procedure Post Op Diagnosis: Same - Procedure Note Primary Surgeon: Cony López MD Anesthesia Provider: Kathy Post CRNA Pathology: 1) Uterine contents 2) Cold knife cone biopsy- primarily involving anterior aspect of cervix 3) Small sample of posterior cervix 4) sample of left lateral aspect of cervical os 5) Endocervical curettage IV Fluids (mL): 500 (See anesthesia record) Estimated Blood Loss (mL): 100 Urine Output (mL): 350 Indications: Patient is a 35-year-old here for preop assessment for cold knife cone biopsy with hysteroscopy D&C. Patient was last seen in clinic on 07/07/20 for a pap smear. Pap smear returned as suspicious for adenocarcinoma. Patient has had normal pap smears in the past. She has had irregular menses with oligomenorrhea coouple with dysfunctional uteirne bleeding. We reviewed that adenocarcinoma can represent cervical pathology but it can also represent endometrial pathology. For this reason, I am recommending further assessment with Cold knife cone biopsy and hysteroscopy D&C. Patient is in agreement. Patient is in agreement. No changes in health hx since time of prior exam. Findings: Anterior cervix with fungating mass not previously noted at time of pap smear. Measures about 3.0 cm in width and 3.5 cm in depth of the visible portion of mass. Thin cervical edge bordering the mass. Appears to extend into the left lateral edge. Friable and would not hold Allis clamp with shedding tissue. Uterine cavity with bilateral tubal ostia and no structural abnormalities. Complications: None - Other Other Information/Narrative: Risks benefits and alternatives to the procedure were reviewed. Consent was again confirmed. Patient was taken to the operating room where she underwent general anesthesia. She was positioned in dorsolithotomy position with legs resting in yellowfin stirrups. She was prepped and draped in the usual sterile fashion. Preoperative antibiotics were not indicated. Preoperative checklist was performed. Styles catheter was placed to decompress the bladder. Exam under anesthesia was performed. Speculum was placed in the vagina and the cervix was visualized. Single-tooth tenaculum was placed at the anterior cervical lip. Paracervical block was administered using a total of 30 cc of 0.5% bupivicaine and 1% lidocaine with epinephrine was injected at the 4:00 and 8:00 positions lateral to the portio of the cervix. The cervical os was serially dilated with Hegar dilators to accommodate the caliber of the diagnostic hysteroscope. The hysteroscope was inserted and findings were noted as above. The hysteroscopic morcellator was inserted through the operative port. The D&C was performed with the morcellator under direct visualization in order to collect an endometrial sample while minimizing potential contamination with cervical tissue. Uterine cavity was smooth at close of the procedure. Hysteroscope was removed. All instruments were removed from the uterus. Attention was then turned to the cold knife cone portion of the procedure. Stay sutures were placed at 3:00 and 9:00 with PDS II. Lugols solution was placed to identify borders of the lesion. Lesion was large and extended to the stay suture on the left lateral aspect of the cervix. A #11 blade scalpel was used to core a cone shaped biopsy of the cervix to the borders of the region of poor Lugol's uptake. The bulk of the biopsy was taken from the anterior cervix. A small sample was taken from the posterior aspect of the cervix for completion. A partially avulsed portion at the left lateral aspect of the cervical bed was also removed and sent to pathology. ECC was collected. The biopsy bed was then cauterized using the ball cautery at 60 ramon blend. Monsels solution was applied. A segment of Surgicel was folded over into fourths and placed within the cone bed. The stay-sutures were tied over the Surgicel to hold it in place. Good hemostasis was noted. Tenaculum was removed Tenaculum sites were noted to be hemostatic. All instruments were removed from the vagina. Procedure was well-tolerated without complication. Styles catheter was removed at close of the procedure. Fluid deficit: 240 cc NS
[2020-08-07] MEDS ORDERED: oxyCODONE 5 MG TABLET PO PRN (10:41)
[2020-08-07] MEDS ORDERED: oxyCODONE 5 MG TABLET ONE (10:53)
[2020-08-07 11:37] VITALS: BP 109/75
--- NOTE | 2020-08-07 13:42 | ANESTHESIA POST OP EVALUATION ---
Anesthesia Post Eval - Post Anesthesia Eval Vitals: Last Vital Signs Temp 36.7 C 08/07/20 11:35 Pulse 81 08/07/20 11:35 Resp 14 08/07/20 11:35 BP 109/75 08/07/20 11:35 Pulse Ox 98 08/07/20 11:35 CV Function Including HR & BP: Stable Pain Control: Satisfactory Nausea & Vomiting: Negative Mental Status: Baseline Respiratory Status: Airway Patent Hydration Status: Satisfactory Anesthesia Complications: None
== END 2020-08-07 06:18 | disposition home or self-care (01) ==
LOC: SDS 06:17
PROVIDERS: ATTEND Obstetrics & Gynecology
PROC: 0UBC7ZX Excision of Cervix, Via Natural or Artificial Opening, Diagnostic (ICD-10-PCS; principal; 2020-08-07 07:30)
PROC: 0UDB8ZX Extraction of Endometrium, Via Natural or Artificial Opening Endoscopic, Diagnostic (ICD-10-PCS; 2020-08-07 07:30)
DX: C53.0 Malignant neoplasm of endocervix (principal); N93.8 Other specified abnormal uterine and vaginal bleeding; N91.5 Oligomenorrhea, unspecified; E66.01 Morbid (severe) obesity due to excess calories; Z68.42 Body mass index [BMI] 45.0-49.9, adult
CPT/HCPCS: 57520; 58558; 81025; A9270; J0131; J0690; J3490; J7120

== ENCOUNTER 2020-09-26 16:25 | Emergency (ER) | payer OTHER ==
[2020-09-26 16:36] VITALS: BP 119/80
--- NOTE | 2020-09-26 17:01 | ED Physician Documentation ---
History of Present Illness - Stated complaint Stated Complaint: POST OP BLEEDING - Chief complaint Chief Complaint: Abd Pain - History obtained from History obtained from: Patient - History of Present Illness Timing: How many weeks ago (Several) Pain level max: 0 Pain level now: 0 - Additonal information Additional information: Patient is a 35-year-old female who had a colposcopy, hysteroscopy, D&C and cone biopsy on 08/07/2020. She states since that time she has had intermittent vaginal bleeding. She states that a week ago she picked up several heavy water bottles and when she stood up she felt a gush of blood. She states she has had intermittent spotting since that time. Had some lightheadedness and dizziness as well. She is scheduled to have a hysterectomy for endocervical adenocarcinoma In 10 days with gynecology oncology. Patient states that currently she is not bleeding. She talked to her radio frequency design engineer who recommended she come here for evaluation. Nothing makes it better or worse. 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, 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 and currettage - Present Medications Home Medications: Ambulatory Orders Medication Instructions Recorded Confirmed Acetaminophen [Tylenol] 650 mg PO Q6H PRN #90 tablet 08/07/20 Ibuprofen [Motrin] 600 mg PO Q6H PRN #60 tab 08/07/20 Ondansetron Odt [Zofran Odt] 8 mg TL Q8H PRN #30 tablet 08/07/20 oxyCODONE [Roxicodone] 2.5 - 5 mg PO Q4H PRN #16 tablet 08/07/20 Alprazolam [Xanax] 0.25 mg PO Q8H PRN #7 tablet 09/26/20 - Allergies Allergies/Adverse Reactions: Allergies Allergy/AdvReac Type Severity Reaction Status Date / Time No Known Drug Allergies Allergy Verified 09/26/20 16:36 - Social History Does the pt smoke?: No Smoking Status: Never smoker Does the pt drink ETOH?: No Does the pt have substance abuse?: No - Immunizations Immunizations are current?: Yes Immunizations: TDAP >10years/unknown - POLST Patient has POLST: No PD ED PE NORMAL - Vitals Vital signs reviewed: Yes - General General: Alert and oriented X 3, No acute distress, Well developed/nourished - HEENT HEENT: PERRL, Moist mucous membranes, Other (Normal appearance of the inner eyelids) - Neck Neck: Supple, no meningeal sign - Cardiac Cardiac: RRR - Respiratory Respiratory: No respiratory distress, Clear bilaterally - Abdomen Abdomen: Soft, Non tender, Non distended - Female Female : Pt declined - Derm Derm: Warm and dry - Extremities Extremities: No edema - Neuro Neuro: Alert and oriented X 3 - Psych Psych: Normal mood, Normal affect Results - Vitals Vitals: Vital Signs - 24 hr 09/26/20 16:31 Temperature 36.1 C L Heart Rate 86 Respiratory 16 Rate Blood Pressure 119/80 O2 Saturation 100 Oxygen O2 Source Room air - Labs Labs: Laboratory Tests 09/26/20 09/26/20 09/26/20 16:56 16:56 16:56 WBC 11.6 H RBC 4.93 Hgb 13.8 Hct 42.7 MCV 86.6 MCH 28.0 MCHC 32.3 RDW 13.9 Plt Count 328 MPV 9.2 Neut # (Auto) 7.2 H Lymph # (Auto) 3.4 Mclennan # (Auto) 0.8 Eos # (Auto) 0.1 Baso # (Auto) 0.0 Absolute Nucleated RBC 0.00 Nucleated RBC % 0.0 PT 14.3 H INR 1.3 H APTT 32.4 Sodium 137 Potassium 3.6 Chloride 98 L Carbon Dioxide 28 Anion Gap 11.0 BUN 12 Creatinine 0.7 Estimated GFR (MDRD) 94 Glucose 111 H Calcium 9.6 Total Bilirubin 0.4 AST 19 ALT 22 Alkaline Phosphatase 74 Total Protein 8.2 Albumin 4.1 Globulin 4.1 Albumin/Globulin Ratio 1.0 PD MEDICAL DECISION MAKING - ED course Complexity details: reviewed results, re-evaluated patient, considered differential, d/w patient, d/w sap ppm consultant ED course: 35-year-old female with dysfunctional uterine bleeding. Discussed the case with Dr. López, gynecology. She recommends following up with gynecology oncology as scheduled. Patient's hemoglobin is normal. No bleeding here. Patient a symptomatic. Patient counseled regarding signs and symptoms for which I believe and urgent re-evaluation would be necessary. Patient with good understanding of and agreement to plan and is comfortable going home at this time This document was made in part using voice recognition software. While efforts are made to proofread this document, sound alike and grammatical errors may occur. Patient also states that she has having a hard time dealing with her diagnosis and request something for anxiety/sleeping. We will prescribe a small amount of Xanax for her. [place] Recommend she follow-up with her doctor for this. Patient denies feeling suicidal or homicidal. Departure - Departure Disposition: Home, Self Care Clinical Impression: Dysfunctional uterine bleeding Condition: Good Instructions: ED Bleed Irregular Vaginal Follow-Up: Marika López MD [Provider Admit Priv/Credential] - Prescriptions: Alprazolam [Xanax] 0.25 mg PO Q8H PRN #7 tablet PRN Reason: Anxiety Comments: Your blood counts are normal tonight. Follow-up with gynecology oncology for your hysterectomy as scheduled. Return if you worsen. I did speak with Dr. Rene james. Your hemoglobin is 13.8 and your hematocrit is 42.7. Your platelets are normal. Please discuss with your doctor anxiety medication for home. Do not drive or operate heavy machinery while taking the anxiety medication Discharge Date/Time: 09/26/20 18:32
[2020-09-26 17:03] LABS: BASOPHILS % (AUTO) 0.3 %; EOSINOPHILS # (AUTO) 0.1 10^3/uL (0.0-0.7); EOSINOPHILS % (AUTO) 1.2 %; HCT - HEMATOCRIT 42.7 % (37.0-47.0); HGB - HEMOGLOBIN 13.8 g/dL (12.0-16.0); LYMPHOCYTES # (AUTO) 3.4 10^3/uL (1.5-3.5); LYMPHOCYTES % (AUTO) 29.5 %; MEAN CORPUSCULAR HGB CONC 32.3 g/dL (32.0-36.0); MEAN CORPUSCULAR VOLUME 86.6 fL (81.0-99.0); MEAN PLATELET VOLUME 9.2 fL (7.9-10.8); MONOCYTES # (AUTO) 0.8 10^3/uL (0.0-1.0); MONOCYTES % (AUTO) 6.8 %; NEUTROPHILS # (AUTO) 7.2 10^3/uL (1.5-6.6); NEUTROPHILS % (AUTO) 61.9 %; PLT - PLATELET COUNT 328 10^3/uL (130-450); RED BLOOD COUNT 4.93 10^6/uL (4.20-5.40); RED CELL DISTRIBUTION WIDTH 13.9 % (12.0-15.0); WHITE BLOOD COUNT 11.6 x10^3/uL (4.8-10.8)
[2020-09-26 17:10] LABS: INR 1.3 (0.8-1.2); PT - PROTHROMBIN TIME 14.3 secs (9.9-12.6)
[2020-09-26 17:16] LABS: ALBUMIN 4.1 g/dL (3.2-5.5); BILIRUBIN,TOTAL 0.4 mg/dL (0.2-1.0); CALCIUM 9.6 mg/dL (8.5-10.3); CREATININE 0.7 mg/dL (0.4-1.0); POTASSIUM 3.6 mmol/L (3.5-5.0); TOTAL PROTEIN 8.2 g/dL (6.7-8.2)
[2020-09-26 17:17] LABS: PARTIAL THROMBOPLASTIN TIME 32.4 secs (24.9-33.3)
== END 2020-09-26 18:32 | disposition home or self-care (01) ==
LOC: ED 16:25
DX: N93.8 Other specified abnormal uterine and vaginal bleeding (principal); C53.0 Malignant neoplasm of endocervix; F41.9 Anxiety disorder, unspecified; E11.9 Type 2 diabetes mellitus without complications
CPT/HCPCS: 36415; 80053; 85025; 85610; 85730; 99283; 99284

== ENCOUNTER 2020-10-01 09:33 | Outpatient (CLI) | payer OTHER ==
[2020-10-01 10:18] LABS: HGB - HEMOGLOBIN 13.4 g/dL (12.0-16.0); MEAN CORPUSCULAR HEMOGLOBIN 27.7 pg (27.0-31.0); MEAN CORPUSCULAR HGB CONC 31.9 g/dL (32.0-36.0); MEAN CORPUSCULAR VOLUME 86.8 fL (81.0-99.0); MEAN PLATELET VOLUME 9.2 fL (7.9-10.8); RED BLOOD COUNT 4.84 10^6/uL (4.20-5.40); RED CELL DISTRIBUTION WIDTH 13.8 % (12.0-15.0)
[2020-10-01 10:27] LABS: ALBUMIN 4.1 g/dL (3.2-5.5); BILIRUBIN,TOTAL 0.5 mg/dL (0.2-1.0); CALCIUM 10.2 mg/dL (8.5-10.3); CREATININE 0.7 mg/dL (0.4-1.0); TOTAL PROTEIN 8.3 g/dL (6.7-8.2)
== END 2020-10-01 09:34 | disposition home or self-care (01) ==
LOC: LAB 09:33
PROVIDERS: ATTEND Obstetrics & Gynecology
DX: C53.8 Malignant neoplasm of overlapping sites of cervix uteri (principal)
CPT/HCPCS: 36415; 80053; 85027

== ENCOUNTER 2020-11-06 03:10 | Emergency (ER) | payer OTHER ==
[2020-11-06 03:48] LABS: BILIRUBIN,URINE NEGATIVE (NEGATIVE); GLUCOSE, URINE (UA) NEGATIVE (NEGATIVE); KETONES,URINE (UA) NEGATIVE (NEGATIVE); LEUKOCYTE ESTERASE, URINE NEGATIVE (NEGATIVE); NITRITE,URINE NEGATIVE (NEGATIVE); OCCULT BLOOD,URINE NEGATIVE (NEGATIVE); PROTEIN,URINE NEGATIVE (NEGATIVE); UROBILINOGEN,URINE 0.2 (NORMAL) E.U./dL (NORMAL)
[2020-11-06 03:49] LABS: CLARITY,URINE CLEAR (CLEAR)
[2020-11-06] MEDS ORDERED: ACETAMINOPHEN 325 MG TABLET PO STA (04:32)
[2020-11-06 05:03] VITALS: BP 125/79
[2020-11-06 05:08] LABS: BASOPHILS # (AUTO) 0.1 10^3/uL (0.0-0.1); BASOPHILS % (AUTO) 0.5 %; EOSINOPHILS # (AUTO) 0.2 10^3/uL (0.0-0.7); EOSINOPHILS % (AUTO) 2.3 %; HCT - HEMATOCRIT 36.9 % (37.0-47.0); HGB - HEMOGLOBIN 11.5 g/dL (12.0-16.0); LYMPHOCYTES # (AUTO) 3.2 10^3/uL (1.5-3.5); LYMPHOCYTES % (AUTO) 31.7 %; MEAN CORPUSCULAR HEMOGLOBIN 27.1 pg (27.0-31.0); MEAN CORPUSCULAR HGB CONC 31.2 g/dL (32.0-36.0); MEAN CORPUSCULAR VOLUME 86.8 fL (81.0-99.0); MEAN PLATELET VOLUME 9.1 fL (7.9-10.8); MONOCYTES # (AUTO) 0.7 10^3/uL (0.0-1.0); MONOCYTES % (AUTO) 6.8 %; NEUTROPHILS # (AUTO) 5.9 10^3/uL (1.5-6.6); NEUTROPHILS % (AUTO) 58.4 %; PLT - PLATELET COUNT 312 10^3/uL (130-450); RED BLOOD COUNT 4.25 10^6/uL (4.20-5.40); RED CELL DISTRIBUTION WIDTH 14.3 % (12.0-15.0); WHITE BLOOD COUNT 10.1 x10^3/uL (4.8-10.8)
[2020-11-06 05:21] LABS: ALBUMIN 3.6 g/dL (3.2-5.5); ALBUMIN/GLOBULIN RATIO 0.9 (1.0-2.2); BILIRUBIN,TOTAL 0.4 mg/dL (0.2-1.0); CALCIUM 9.3 mg/dL (8.5-10.3); CREATININE 0.7 mg/dL (0.4-1.0); POTASSIUM 3.6 mmol/L (3.5-5.0); TOTAL PROTEIN 7.6 g/dL (6.7-8.2)
--- NOTE | 2020-11-06 05:28 | ED Physician Documentation ---
PD HPI ABD PAIN - Stated complaint Stated Complaint: POST OP/LOW ABD PX - Chief complaint Chief Complaint: Abd Pain - History obtained from History obtained from: Patient - History of Present Illness Timing - onset: Yesterday Timing - duration: Days (1) Timing - details: Gradual onset, Still present Quality: Sharp, Pain Location: RLQ Radiation: Right flank Improved by: Laying still Worsened by: Moving, Position, Palpation Associated symptoms: No: Fever, Nausea, Vomiting, Diarrhea, Constipation Similar symptoms before: Diagnosis (post operative pain) Recently seen: Surgery - Additional information Additional information: 35-year-old female who has had a radical hysterectomy for uterine cancer has had a cure of her disease. She had surgery on 06 October and she has been recovering. She felt well and begin to do more things and yesterday she began to feel pain in her right lower side. 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 She has been having a difficult time sleeping tonight and has run out of Tylenol and Advil. She comes into the emergency department this morning with pain and questions about why this is happened to her. She has had her last shot of Lovenox yesterday. Review of Systems Constitutional: denies: Fever Eyes: denies: Decreased vision Ears: denies: Ear pain Nose: denies: Congestion Throat: denies: Sore throat Cardiac: denies: Chest pain / pressure, Palpitations Respiratory: denies: Dyspnea, Cough GI: reports: Abdominal Pain. 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, Dilation and currettage, Hysterectomy - Present Medications Home Medications: Ambulatory Orders Medication Instructions Recorded Confirmed Acetaminophen [Tylenol] 650 mg PO Q6H PRN #90 tablet 08/07/20 Ibuprofen [Motrin] 600 mg PO Q6H PRN #60 tab 08/07/20 Ondansetron Odt [Zofran Odt] 8 mg TL Q8H PRN #30 tablet 08/07/20 oxyCODONE [Roxicodone] 2.5 - 5 mg PO Q4H PRN #16 tablet 08/07/20 Alprazolam [Xanax] 0.25 mg PO Q8H PRN #7 tablet 09/26/20 oxyCODONE [Roxicodone] 5 mg PO Q4-6H PRN #12 tablet 11/06/20 - Allergies Allergies/Adverse Reactions: Allergies Allergy/AdvReac Type Severity Reaction Status Date / Time No Known Drug Allergies Allergy Verified 11/06/20 03:19 - Social History Does the pt smoke?: No Smoking Status: Never smoker Does the pt drink ETOH?: No Does the pt have substance abuse?: No - Immunizations Immunizations are current?: Yes Immunizations: TDAP >10years/unknown - POLST Patient has POLST: No PD ED PE NORMAL - Vitals Vital signs reviewed: Yes (Hypertensive) - General General: Alert and oriented X 3, No acute distress, Well developed/nourished - HEENT HEENT: Atraumatic, PERRL, EOMI - Neck Neck: Supple, no meningeal sign, No bony TTP - Cardiac Cardiac: RRR, No murmur - Respiratory Respiratory: No respiratory distress, Clear bilaterally - Abdomen Abdomen: Soft, Non distended, No organomegaly, Other (Mild right lower quadrant tenderness right over a bruise where she is given her shot self shot with Lovenox. There is no specific point tenderness that is reproducible. 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, No motor deficit, No sensory deficit, Normal speech Eye Opening: Spontaneous Motor: Obeys Commands Verbal: Oriented GCS Score: 15 - Psych Psych: Normal mood, Normal affect Results - Vitals Vitals: Vital Signs - 24 hr 11/06/20 11/06/20 11/06/20 03:19 03:30 04:16 Temperature 36.4 C L Heart Rate 88 Respiratory 16 17 Rate Blood Pressure 150/90 H 123/77 O2 Saturation 98 11/06/20 11/06/20 11/06/20 04:47 05:01 05:03 Temperature Heart Rate 73 Respiratory 16 16 Rate Blood Pressure 125/79 O2 Saturation 98 Oxygen O2 Source Room air - Labs Labs: Laboratory Tests 11/06/20 11/06/20 11/06/20 03:40 05:03 05:03 WBC 10.1 RBC 4.25 Hgb 11.5 L Hct 36.9 L MCV 86.8 MCH 27.1 MCHC 31.2 L RDW 14.3 Plt Count 312 MPV 9.1 Neut # (Auto) 5.9 Lymph # (Auto) 3.2 Branch # (Auto) 0.7 Eos # (Auto) 0.2 Baso # (Auto) 0.1 Absolute Nucleated RBC 0.00 Nucleated RBC % 0.0 Sodium 134 L Potassium 3.6 Chloride 102 Carbon Dioxide 24 Anion Gap 8.0 BUN 10 Creatinine 0.7 Estimated GFR (MDRD) 94 Glucose 146 H Calcium 9.3 Total Bilirubin 0.4 AST 22 ALT 37 Alkaline Phosphatase 78 Total Protein 7.6 Albumin 3.6 Globulin 4.0 Albumin/Globulin Ratio 0.9 L Lipase 36 Urine Color YELLOW Urine Clarity CLEAR Urine pH 6.0 Ur Specific Combes 1.015 Urine Protein NEGATIVE Urine Glucose (UA) NEGATIVE Urine Ketones NEGATIVE Urine Occult Blood NEGATIVE Urine Nitrite NEGATIVE Urine Bilirubin NEGATIVE Urine Urobilinogen 0.2 (NORMAL) Ur Leukocyte Esterase NEGATIVE Ur Microscopic Review NOT INDICATED Urine Culture Comments NOT INDICATED PD MEDICAL DECISION MAKING - ED course Complexity details: considered differential, d/w patient ED course: 35-year-old female who is s/p radical hysterectomy more than 1 month has begun to become more active and she has some strain of her abdominal muscles. She has a bruise to the area where she hurts the most. She is out of pain medication. She is requesting Tylenol.I suggested maybe we should do a CT scan of her abdomen to make sure there is nothing amiss inside and she thought that was probably unnecessary. She is administered PO tylenol and her blood and urine are checked and are unremarkable. Departure - Departure Disposition: 01 Home, Self Care Clinical Impression: Post-operative pain Condition: Stable Instructions: ED Post Op Pain Follow-Up: Davide Alejandra DO [Primary Care Provider] - Prescriptions: oxyCODONE [Roxicodone] 5 mg PO Q4-6H PRN #12 tablet PRN Reason: Pain
== END 2020-11-06 05:43 | disposition home or self-care (01) ==
LOC: ED 03:10
DX: G89.18 Other acute postprocedural pain (principal); E11.9 Type 2 diabetes mellitus without complications
CPT/HCPCS: 36415; 80053; 81003; 83690; 85025; 99283; 99284; A9270; 81001; 87086

== ENCOUNTER 2021-04-14 15:01 | Outpatient (CLI) | payer OTHER ==
--- NOTE | 2021-04-15 10:17 | Mammography Report ---
BILATERAL DIGITAL SCREENING MAMMOGRAM 3D/2D: 04/14/2021 CLINICAL: Routine screening. Comparison is made to exams dated: 10/27/2016 ultrasound and 10/22/2016 ultrasound - [facility]. There are scattered fibroglandular elements in both breasts. No significant masses, calcifications, or other findings are seen in either breast. There has been no significant interval change. IMPRESSION: NEGATIVE There is no mammographic evidence of malignancy. A 1 year screening mammogram is recommended. This exam was interpreted at Station ID: [id number]. NOTE: For mammograms, a report in lay terms will be sent to the patient. Approximately 15% of breast malignancies will not be visualized mammographically. In the management of a palpable breast mass, a negative mammogram must not discourage biopsy of a clinically suspicious lesion. Electronically Signed By: Austin Roldan M.D. aty/penrad:04/15/2021 08:04:06 ACR BI-RADS Category 1: Negative 3341F PARENCHYMAL PATTERN: (A) - The breast(s) demonstrate(s) scattered fibroglandular densities. BI-RADS CATEGORY: (1) - 1 RECOMMENDATION: (ANNUAL) - Recommend routine annual screening mammography. [id number] 1 year screening LATERALITY: (B)
== END 2021-04-14 15:02 | disposition home or self-care (01) ==
LOC: DI.N 15:01
PROVIDERS: ATTEND Family Medicine
DX: Z12.31 Encounter for screening mammogram for malignant neoplasm of breast (principal)

== ENCOUNTER 2021-06-10 13:59 | Emergency (ER) | payer OTHER ==
[2021-06-10 14:13] VITALS: BP 143/76
--- OUTSIDE RECORDS SUMMARY | 2021-06-10 14:28 | EXTERNAL MEDICAL SUMMARY RPT | Continuity of Care Document ---
:1985 Author Organization [facility] Address [address] [place] [address] Phone Care Team Providers Name Role Phone Davide Alejandra Unavailable Unavailable Allergies No information. Encounters No information. Medications No information. Problems Procedures date description facility [id number] [facility] Results No information. Vital Signs date measurement value source 20210403 weight_standard 124.74 lb 20210403 weight_metric 56.58 kg 20210403 temperature_standard 98.3 F 20210403 temperature_metric 36.83 C 20210403 height_standard 62 in 20210403 height_metric 157.48 cm 20210403 BMI 50.3 kg/m2 20210404 respiration_rate 20 /min 20210404 heart_rate 75 /min 20210404 BP_systolic 139 mm[Hg] 20210404 BP_diastolic 67 mm[Hg]
--- NOTE | 2021-06-10 14:39 | ED Physician Documentation ---
PD HPI UPPER EXT INJURY - Stated complaint Stated Complaint: R HAND PX - Chief complaint Chief Complaint: Ext Problem - History obtained from History obtained from: Patient - Additonal information Additional information: The patient comes to the emergency department chief complaint of right hand injury about 1 week ago. She states that her 2-year-old daughter had jumped and the patient tried to catch her and hyperextended her right thumb. She states that ever since, it has hurt and been swollen in the thenar eminence. She felt a pop at the time of injury. She states that any sort of opposition is painful at the joint and that thenar eminence. No other injuries or complaints. She states the rest of her hand and her wrist are fine. Review of Systems Ten Systems: 10 systems reviewed and negative Constitutional: reports: Reviewed and negative Eyes: reports: Reviewed and negative Ears: reports: Reviewed and negative Nose: reports: Reviewed and negative Throat: reports: Reviewed and negative Cardiac: reports: Reviewed and negative Respiratory: reports: Reviewed and negative GI: reports: Reviewed and negative : reports: Reviewed and negative Skin: reports: Reviewed and negative Musculoskeletal: reports: Extremity pain, Joint pain, Extremity swelling, Joint swelling Neurologic: reports: Reviewed and negative Psychiatric: reports: Reviewed and negative Endocrine: reports: Reviewed and negative Immunocompromised: reports: Reviewed and negative PD PAST MEDICAL HISTORY - Past Medical History Cardiovascular: None Respiratory: Asthma, Pneumonia Neuro: None Endocrine/Autoimmune: Type 2 diabetes GI: None 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 : Incontinence, Nocturia, Frequency HEENT: None Psych: Anxiety Musculoskeletal: Chronic back pain Derm: Eczema, Rosacea - Past Surgical History Past Surgical History: Yes General: 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, Dilation and currettage, Hysterectomy - Present Medications Home Medications: Ambulatory Orders Medication Instructions Recorded Confirmed Ibuprofen [Motrin] 600 mg PO Q6H PRN #60 tab 08/07/20 05/11/21 Acetaminophen [Acetaminophen Extra 2 tablet PO Q6HR PRN 05/11/21 05/11/21 Strength] Gabapentin [Neurontin] 300 mg PO HS 05/11/21 05/11/21 estradioL [Estradiol (Once Weekly)] 1 each TD OAW 05/11/21 05/11/21 oxyCODONE [Roxicodone] 5 mg PO Q6HR PRN 05/11/21 05/11/21 polyethylene glycoL 3350 [Miralax] 17 gm PO DAILY 05/11/21 05/11/21 - Allergies Allergies/Adverse Reactions: Allergies Allergy/AdvReac Type Severity Reaction Status Date / Time No Known Drug Allergies Allergy Verified 06/10/21 14:11 - Social History Does the pt smoke?: No Smoking Status: Never smoker Does the pt drink ETOH?: No Does the pt have substance abuse?: No - Immunizations Immunizations are current?: Yes Immunizations: TDAP >10years/unknown - POLST Patient has POLST: No PD ED PE NORMAL - Vitals Vital signs reviewed: Yes - General General: Alert and oriented X 3, No acute distress, Well developed/nourished - HEENT HEENT: Atraumatic, PERRL, EOMI, Moist mucous membranes - Neck Neck: Supple, no meningeal sign - Cardiac Cardiac: RRR, No murmur, Strong equal pulses - Respiratory Respiratory: No respiratory distress, Clear bilaterally - Abdomen Abdomen: Soft, Non tender, Non distended - Derm Derm: Normal color, Warm and dry, No rash - Extremities Extremities: No deformity, Other (Mild edema and moderate tenderness over right thenar eminence. Moderate tenderness to palpation around the MCP joint of the thumb as well. No deformity. No clicking or popping with flexion or extension. Opposition and flexion at the MCP joint limited secondary to pain. ) - Neuro Neuro: Alert and oriented X 3 - Psych Psych: Normal mood, Normal affect Results - Vitals Vitals: Vital Signs - 24 hr 06/10/21 14:11 Temperature 37.3 C Heart Rate 90 Respiratory 18 Rate Blood Pressure 143/76 H O2 Saturation 98 Oxygen O2 Source Room air - Rads (name of study) Right hand x-ray series Radiology: Final report received, EMP read indepedently, See rad report (No fracture) PD MEDICAL DECISION MAKING - ED course Complexity details: reviewed results, re-evaluated patient, considered differential, d/w patient ED course: The patient was worked up with a right hand x-ray series, which was negative for fracture or dislocation. She was placed in a removable Velcro thumb spica splint. We have discussed the timeline for healing of strains and sprains and the need for follow-up as well as the usual indications for return. Departure - Departure Disposition: 01 Home, Self Care Clinical Impression: Sprain of right thumb Qualifiers: Encounter type: initial encounter Sprain of finger site: metacarpophalangeal joint Qualified Code(s): S63.641A - Sprain of metacarpophalangeal joint of right thumb, initial encounter Muscle strain, hand Qualifiers: Encounter type: initial encounter Laterality: right Qualified Code(s): S66.911A - Strain of unspecified muscle, fascia and tendon at wrist and hand level, right hand, initial encounter Condition: Stable Instructions: ED Sprain Finger Comments: Your x-ray looks good in terms of concern for bony injury or dislocation. There is no evidence of either these. Most likely, you have sprained the joint at the base of your thumb, and possibly, strained the muscle as well. The search of injuries can take several weeks to heal and are best managed by some degree of immobilization, such as with a removable splint,. You should also use ice packs and anti-inflammatory such as ibuprofen, as needed, to help with the swelling and pain. Please follow-up with your primary care physician if you do not feel things are improving significantly over the next couple of weeks. Forms: Activity restrictions
--- NOTE | 2021-06-10 14:47 | XRAY Report ---
PROCEDURE: Hand 3 View RT INDICATIONS: hand pain/injury TECHNIQUE: 3 views of the hand(s) acquired. COMPARISON: None FINDINGS: Bones: No fractures or dislocations. No suspicious bony lesions. Soft tissues: No suspicious soft tissue calcifications. IMPRESSION: Unremarkable right hand radiographs Reviewed by: Mina Mauricio MD on 06/10/2021 1:45 PM AKDT Approved by: Mina Mauricio MD on 06/10/2021 1:45 PM AKDT Station ID: [id number]
== END 2021-06-10 14:54 | disposition home or self-care (01) ==
LOC: ED 13:59
DX: S63.641A Sprain of metacarpophalangeal joint of right thumb, initial encounter (principal); S66.911A Strain of unspecified muscle, fascia and tendon at wrist and hand level, right hand, initial encounter; X58.XXXA Exposure to other specified factors, initial encounter; E11.9 Type 2 diabetes mellitus without complications
CPT/HCPCS: 99282; 99283

== ENCOUNTER 2022-10-11 15:10 | Outpatient (CLI) | payer OTHER | END 2022-10-11 15:11 | disposition home or self-care (01) | LOC: LAB.N 15:10 | PROVIDERS: ATTEND Family Medicine | DX: Z53.9 Procedure and treatment not carried out, unspecified reason (principal) ==

== ENCOUNTER 2022-10-11 15:39 | Outpatient (CLI) | payer OTHER ==
[2022-10-11 16:23] LABS: CREATININE 0.6 mg/dL (0.6-1.3)
== END 2022-10-11 15:40 | disposition home or self-care (01) ==
LOC: LAB 15:39
PROVIDERS: ATTEND Family Medicine
DX: R91.8 Other nonspecific abnormal finding of lung field (principal); Z85.41 Personal history of malignant neoplasm of cervix uteri
CPT/HCPCS: 36415; 82565

== ENCOUNTER 2022-10-12 07:40 | Outpatient (CLI) | payer OTHER ==
[2022-10-13] MEDS ORDERED: iohexoL-300 100 ML VIAL IVP ONE (08:10)
--- NOTE | 2022-10-27 04:30 | CT Report ---
PROCEDURE: CHEST W INDICATIONS: PULMONARY NODULES CONTRAST: 100ml Omni 300 TECHNIQUE: After the administration of intravenous contrast, 1 mm axial images were acquired from the pulmonary apices through the posterior costophrenic angles. Axial 5 mm soft tissue kernel reconstructions were performed as well as 8 mm axial MIP and coronal and sagittal 5 mm reformations. For radiation dose reduction, the following was used: automated exposure control, adjustment of mA and/or kV according to patient size. COMPARISON: None. FINDINGS: Image quality: Excellent. Lungs and pleura: No consolidation. No pleural effusions. No pneumothorax. No suspicious pulmonary n odules which require follow up. Right upper lobe 2 mm triangular-shaped subpleural nodule most consis tent with subpleural lymph node (series 8, image 73 and series 2, image 29). Mediastinum: Heart size is normal. No pericardial effusion. No large vessel abnormality. No mediastin al adenopathy by size criteria. Chest wall and lower neck: Thyroid is unremarkable. No axillary or supraclavicular adenopathy by size . Bones: No aggressive osseous abnormality. Upper Abdomen: Status post cholecystectomy. Unremarkable. IMPRESSION: No suspicious pulmonary nodules. Reviewed by: Elsy Tripathi MD on 10/12/2022 6:54 PM PDT Approved by: Elsy Tripathi MD on 10/12/2022 6:54 PM PDT Station ID: [id number]
== END 2022-10-12 07:41 | disposition home or self-care (01) ==
LOC: DI 07:40
PROVIDERS: ATTEND Family Medicine
DX: R91.8 Other nonspecific abnormal finding of lung field (principal); Z85.41 Personal history of malignant neoplasm of cervix uteri
CPT/HCPCS: 71260; Q9967

== ENCOUNTER 2022-12-16 12:51 | Outpatient (CLI) | payer OTHER | END 2022-12-16 12:52 | disposition home or self-care (01) | LOC: NS 12:51 | PROVIDERS: ATTEND Family Medicine | DX: Z71.3 Dietary counseling and surveillance (principal); E11.9 Type 2 diabetes mellitus without complications; E66.01 Morbid (severe) obesity due to excess calories; Z68.42 Body mass index [BMI] 45.0-49.9, adult | CPT/HCPCS: 97802 ==

== ENCOUNTER 2023-07-17 08:16 | Emergency (ER) | payer OTHER ==
[2023-07-17 08:41] VITALS: BP 145/84; O2SAT 99
--- NOTE | 2023-07-17 09:57 | ED Physician Documentation ---
PD HPI UPPER EXT INJURY - Stated complaint Stated Complaint: SWOLLEN RT HAND - Chief complaint Chief Complaint: Ext Problem - History obtained from History obtained from: Patient - History of Present Illness Location: Right, Wrist, Hand Type of injury: Twist (he was doing lifting and use of hands/wrists and felt some strain in wrist/hand during that. Has noted some increasing swelling and pressure of hand, pain with ROM of the wrist, and today also faint brusing color near volar wrist/then area.) Timing - onset: How many days ago (2) Associated symptoms: Numbness (intermittently in middle fingers.), Swelling (of the hand and wrist the past day.). 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, Dilation and currettage, Hysterectomy - Present Medications Home Medications: Ambulatory Orders Medication Instructions Recorded Confirmed HYDROcod/ACETAM 5/325 [[place] 5/325] 1 ea PO Q6H PRN #14 tablet 07/17/23 Levothyroxine [Synthroid] 25 mcg PO QDAC 07/17/23 07/17/23 - Allergies Allergies/Adverse Reactions: Allergies Allergy/AdvReac Type Severity Reaction Status Date / Time No Known Drug Allergies Allergy Verified 07/17/23 08:32 - Social History Does the pt smoke?: No Smoking Status: Never smoker Does the pt drink ETOH?: No Does the pt have substance abuse?: No - Immunizations Immunizations are current?: Yes Immunizations: TDAP >10years/unknown - POLST Patient has POLST: No PD ED PE NORMAL - Vitals Vital signs reviewed: Yes - General General: Alert and oriented X 3, Well developed/nourished, Other (very uncomfortable with wrist and hand movement. ) - Derm Derm: Normal color, Warm and dry - Extremities Extremities: Other (right wrist with mild general edema. There is faint purple brusing thenar area base. Tender in volar wrist in carpal tunnel area. ) - Neuro Neuro: No motor deficit, No sensory deficit Results - Vitals Vitals: Oxygen O2 Source Room air - Rads (name of study) right wrist xray Relevant Findings:: Prelim report reviewed, EMP independent interpretation of test (no fractures nor bony abnormality.) PD Medical Decision Making - ED course Complexity details: considered differential (injury with pulling and twist of wrist few days ago and has increasing swelling of hand, pain with ROM, faint purple bruising starting to show thenar area. OBtained xray to ensure not fra cture (such as avulsion fx). This is okay. Presume wrist aprain with now edema of hand due to swelling at wrist. ), d/w patient ED course: Will give pt wrist splint and she asked for sling as well, which will benefit her from elevation, so less swelling in hand. Symptoms should improved with less movement, use, less edema, and absorption of apparent some bleeding from wrist sprain. I assume had some muscle fibers tear with injury, but would be unlikely to have major tears. She does have engagement of flexion and extension of fingers and wrist, so not apparent gross tendon tear. Otherwise too painful and tender to test individual muscle functions. Departure - Departure Disposition: 01 Home, Self Care Clinical Impression: Right wrist sprain, Hand swelling, Wrist pain Condition: Stable Record reviewed to determine appropriate education?: Yes Instructions: ED Sprain Wrist Follow-Up: Davide Alejandra DO [Primary Care Provider] - Prescriptions: HYDROcod/ACETAM 5/325 [[place] 5/325] 1 ea PO Q6H PRN #14 tablet PRN Reason: Pain Comments: Your x-ray is normal without any signs of fractures nor bone spurs etc. It does seem that your symptoms relate to a wrist swelling and tenderness and injury. I think there is some inflammation through the wrist and it is impairing the return blood flow causing swelling in the hand and fingers. It seems likely to be a wrist sprain with some tendon inflammation. Use the wrist splint when up and around active for sure but probably keep it on most the time for the first several days to week. Use it with activity for even 2 or 3 weeks to help support the wrist while it is fully healing. I would anticipate improvement in the pain and swelling over the next few days. Ice elevate and rest the wrist often. Use of anti-inflammatory such as ibuprofen or naproxen 2 to 3 tablets 2-3 times daily for the next several days to week. Add Tylenol every 4-6 hours if needed for pain. To that add hydrocodone if needed for worse pain. I sent your prescription to your preferred pharmacy. Recheck if not improving well over the next several days to week. Forms: PCP List Discharge Date/Time: 07/17/23 11:25
[2023-07-17] MEDS: HYDROcod/ACETAM 5/325 MG TABLET PO STA (10:27)
[2023-07-17] MEDS: IBUPROFEN 600 MG TABLET PO STA (10:27)
--- NOTE | 2023-07-17 10:59 | XRAY Report ---
PROCEDURE: Wrist 3+V RT INDICATIONS: wrist pain, heavy lifting TECHNIQUE: 4 views of the wrist were acquired. COMPARISON: None. FINDINGS: Bones: No acute fractures or dislocations. No suspicious bony lesions. Soft tissues: No suspicious soft tissue calcifications. IMPRESSION: No acute osseous abnormality. If there is clinical concern or persistent symptoms, additional imaging such as repeat radiographs or advanced imaging (e.g. CT, MRI) may be helpful for further evaluation. Reviewed by: Osorio Almanza MD on 07/17/2023 10:58 AM PDT Approved by: Osorio Almanza MD on 07/17/2023 10:58 AM PDT Station ID: [id number]
== END 2023-07-17 11:25 | disposition home or self-care (01) ==
LOC: ED 08:16
DX: S63.501A Unspecified sprain of right wrist, initial encounter (principal); X50.9XXA Other and unspecified overexertion or strenuous movements or postures, initial encounter; E11.9 Type 2 diabetes mellitus without complications; M79.89 Other specified soft tissue disorders; Z79.899 Other long term (current) drug therapy
CPT/HCPCS: 73110; 99283; 99284; A9270

== ENCOUNTER 2023-08-16 07:29 | Outpatient (CLI) | payer OTHER ==
--- NOTE | 2023-08-16 17:47 | CT Report ---
PROCEDURE: Head WO INDICATIONS: HEADACHE TECHNIQUE: Noncontrast 4.5 mm thick angled axial sections acquired from the foramen magnum to the vertex. For r adiation dose reduction, the following was used: automated exposure control, adjustment of mA and/or kV according to patient size. COMPARISON: 03/19/2015, 04/30/2014 FINDINGS: Image quality: Excellent. CSF spaces: Basal cisterns are patent. No extra-axial fluid collections. Ventricles are normal in size and shape. Brain: No midline shift. No intracranial masses or hemorrhage. Rivas-white matter interface is norm al. Skull and face: Calvarium and visualized facial bones are intact, without suspicious lesions. Sinuses: Visualized sinuses and mastoids are clear. IMPRESSION: No acute intracranial pathology. To the limits of this noncontrast study, no findings of masses or mass effect can be seen. Reviewed by: Donald Kumari MD on 08/16/2023 4:45 PM LUCY Approved by: Donald Kumari MD on 08/16/2023 4:45 PM AKLEISA Station ID: [id number]
== END 2023-08-16 07:30 | disposition home or self-care (01) ==
LOC: DI 07:29
PROVIDERS: ATTEND Physician Assistant
DX: R51.9 Headache, unspecified (principal); R41.3 Other amnesia

== ENCOUNTER 2023-09-22 14:26 | Outpatient (CLI) | payer OTHER ==
--- NOTE | 2023-09-22 15:31 | Sleep Patient Instructions ---
Sleep Center Visit Summary - Patient Visit Information Reason for Visit: Initial consultation - Patient Instructions Instructions Attached: Sleep Study, Sleep Study Home Monitor Additional Instructions: You will be completing a sleep study, either an in-lab polysomnography (PSG) or home sleep study (HST). You will follow-up in the sleep care office after the sleep study is completed to hear the results and talk about therapy, if needed. You will be called by our office staff to schedule this appointment, but you may contact us with any questions. - Clinic Information Contact: [facility] [address] [place] [address] [email or web address] T: [phone]
--- NOTE | 2023-09-22 15:35 | SLEEP CARE CONSULTATION ---
Information from patient questionnaire entered by Yasmin Macedo. I have reviewed and concur with the information entered by Yasmin Macedo. This document represents the service I personally performed and the decisions made by me, Rosanna Gibson ARNP. History of Present Illness Service Date and Time: 09/22/2023 1426 Reason for Visit: New patient Chief Complaint: reports: Unrefreshed sleep, Snoring, Excessive daytime sleepiness, Frequent awakenings at night, Other (MOVED BACK TO [place]) Usual bedtime: 2230 Time it takes to fall asleep: 1-2HRS Snores at night: Yes Observed to quit breathing while asleep: No Sleeps alone due to snoring: No Number of times waking at night: 1-2 Reasons for waking at night: reports: Choking, Snoring, Gasping for air, Bathroom Toss, Turn, or Twitch while sleeping: Yes Recalls having dreams: Yes Usually gets out of bed at: 0700 Feels refreshed in the morning: No Morning headache: No Sleepy or fatigued during the day: Yes Ever fallen asleep while driving: No Takes day naps: Yes (on the weekends, usually when sitting watching TV) Dreams during day naps: No Prior sleep studies: Yes Year and Where: [email or web address] 2017 Additional HPI information: CK ELDER was previously seen in 2018 with no diagnosis of significant sleep disordered breathing in PSG dated 08/28/2017. She did however have elevated supine AHI of 18.5 and was placed on positional therapy. She comes in today for further followup. Her current complaints are unrefreshed sleep, snoring and excessive daytime sleepiness. She says she does not remember if she came back to get her results after her last sleep study here. She says she had a hysterectomy after having cancer and she has gained 20 to 30 pounds. - Parasomnia Symptoms Ever been unable to move upon waking from sleep: Yes (4 times a year, auditory hallucinations, sometimes visual) Walks in sleep: No Talks in sleep: Yes Ever acted out dreams in sleep: No Ever felt weak in the knees when startled or emotional: No Bothered by creepy, crawly, restless sensations in legs: No Problems with memory or concentration: No Subjective Initial [place] Sleepiness Scale score: 10 (09/22/23) Past Medical History Past Medical History: reports: Diabetes, Insulin resistance (PCOS), Hypothyroidism, Asthma, Other (CERVICAL CANCER; Hysterectomy; OVER WEIGHT) Social History 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 Patient is and lives in [place]. Have you smoked in the past 12 months: No Alcohol use: No Caffeine use: Yes Caffeine amount and frequency: 2 A WEEK Family History Family history of sleep disordered breathing: No (UNKNOWN) Allergies and Home Medications Known drug allergies: No Drug allergies reviewed: Yes Home medication list reviewed: Yes (as listed) Allergy and home medication list: Allergies No Known Drug Allergies Allergy (Verified 09/21/23 08:26) Home Medications Medication Instructions Recorded Confirmed Last Taken Type HYDROcod/ACETAM 5/325 [[place] 5/325] 1 ea PO Q6H PRN #14 tablet 07/17/23 09/22/23 Unknown Rx Levothyroxine [Synthroid] 25 mcg PO QDAC 07/17/23 09/22/23 Unknown History Aspirin [[place]] See Rx Instructions .ROUTE .COMPLEX 09/22/23 09/22/23 Unknown History Cholecalciferol (Vitamin D3) See Rx Instructions .ROUTE .COMPLEX 09/22/23 09/22/23 Unknown History [Vitamin D3] Dulaglutide [Trulicity] See Rx Instructions .ROUTE .COMPLEX 09/22/23 09/22/23 Unknown History Estradiol [[place]] See Rx Instructions .ROUTE .COMPLEX 09/22/23 09/22/23 Unknown History Meloxicam See Rx Instructions .ROUTE .COMPLEX 09/22/23 09/22/23 Unknown History lidocaine HCL [Lidaflex] See Rx Instructions .ROUTE .COMPLEX 09/22/23 09/22/23 Unknown History Review of Systems Weight gain over past 5 years: 20-30 Weight loss over past 5 years: 3 Cardiovascular: denies: high blood pressure Gastrointestinal: denies: heartburn Neurological: denies: headaches Psychiatric: denies: anxiety, depression Ear/Nose/Throat: denies: tonsillectomy Physical Exam Vital signs obtained and entered by: YASMIN Huffman MA Blood Pressure: 150/84 (RIGHT ARM) Cuff size: regular Heart Rate: 74 O2 Saturation: 97 Height: 5 ft 2 in Weight: 270 lb 3.2 oz Body Mass Index: 49.4 BMI Classification: Morbidly Obese Neck circumference: 17.5 Mouth and throat: narrow oropharynx Soft palate: long Hard palate: normal Uvula: normal Uvula visualization: 50% Mallampati Class II Tongue: enlarged in size with teeth shea on lateral edges Tonsils: 1+ Neck: normal w/o lymphadenopathy or thyromegaly Heart: regular rate and rhythm Lungs: clear bilaterally Impression and Plan 1. Suspected Obstructive Sleep Apnea-Hypopnea Syndrome, as suggested by a history of loud and irregular snoring, gasping or choking in sleep, unrefreshed sleep, and excessive daytime sleepiness. Narrow oropharynx and obesity are common predisposing factors for obstructive sleep apnea-hypopnea syndrome. I recommend proceeding to polysomnography to confirm the diagnosis and to assess severity. If the patient has significant sleep disordered breathing, a manual CPAP titration study will also be performed to find the optimal treatment pressure. I informed the patient of what the sleep studies involve and after some discussion, obtained agreement to proceed. The pathophysiology of obstructive sleep apnea-hypopnea syndrome was discussed with the patient and health risks of cardiovascular and cerebrovascular disease if not treated. Risks of drowsy driving discussed in detail and patient advised to avoid long distance driving and to truss puller helper at the first sign of drowsiness. Patient agreed to plan. * Schedule polysomnography * Avoid long distance driving or driving when feeling sleepy. * Avoid alcohol, sedative and muscle relaxant around bedtime. * Attempt to lose weight. * Review instructions provided by trained office staff on how to prepare for the sleep study. * Return for follow-up after sleep study completed. Counseling Topics: Weight loss health impact Plan: PSG and follow up Visit Type: In Office Time Spent with Patient (minutes): 31 Provider Statement: I spent 100% of the Face to Face Visit with the patient with greater than 50% spent counseling the patient and coordination of care.
[2023-09-22 15:38] VITALS: BP 150/84; O2SAT 97
== END 2023-09-22 14:27 | disposition home or self-care (01) ==
LOC: SC 14:26
PROVIDERS: ATTEND Nurse Practitioner Family
DX: G47.10 Hypersomnia, unspecified (principal); G47.8 Other sleep disorders; R06.83 Snoring; E66.01 Morbid (severe) obesity due to excess calories; Z68.42 Body mass index [BMI] 45.0-49.9, adult
CPT/HCPCS: 99203; 99212

== ENCOUNTER 2023-10-04 14:45 | Outpatient (CLI) | payer OTHER ==
--- NOTE | 2023-10-06 09:13 | Ultrasound Report ---
LIMITED ULTRASOUND OF RIGHT BREAST: 10/04/2023 CLINICAL: Focal right breast pain. Comparison is made to exams dated: 10/04/2023 mammogram and 04/14/2021 mammogram - [facility]. Color flow and real-time ultrasound of the right breast were performed. Rivas scale images of the maryann l-time examination were reviewed. There are benign normal lymph nodes in the right axilla. IMPRESSION: BENIGN There is no sonographic evidence of malignancy. There is no abnormality seen in the right axilla to correspond with the pain in the right axilla, how ever, clinical followup is recommended. Return to annual mammogram screening schedule is recommended. This exam was interpreted at Station ID: [id number]. Electronically Signed By: Osorio escalante/laura:10/04/2023 16:30:07 letter sent: No_Letter Ultrasound BI-RADS: 2 Benign BI-RADS CATEGORY: (2) - 2 Mammogram [id number] return to screening LATERALITY: (B)
--- NOTE | 2023-10-06 09:13 | Mammography Report ---
BILATERAL DIGITAL DIAGNOSTIC MAMMOGRAM 3D/2D WITH EXAGGERATED CC: 10/04/2023 CLINICAL: Focal right axillary pain. Due for bilateral exam. Comparison is made to exam dated: 04/14/2021 mammogram - [facility]. There are scattered areas of fibroglandular density in both breasts (category b / 25%-50% glandular t issue). No significant masses, calcifications, or other findings are seen in either breast. IMPRESSION: INCOMPLETE: NEEDS ADDITIONAL IMAGING EVALUATION There is no abnormality seen in the right breast to correspond with the pain in the axilla, however, ultrasound is recommended. Based on the Tyrer Cuzick model (a risk assessment model) the patient's lifetime risk is 6.9% and her 10 year risk is 0.9%. According to the ACR, ACS, and NCCN guidelines, an annual breast MRI exam jared g with mammogram is recommended if the patient's lifetime risk is 20% or greater. This exam was interpreted at Station ID: [id number]. NOTE: For mammograms, a report in lay terms will be sent to the patient. Approximately 15% of breast malignancies will not be visualized mammographically. In the management of a palpable breast mass, a negative mammogram must not discourage biopsy of a clinically suspicious lesion. Electronically Signed By: Osorio escalante/laura:10/04/2023 16:28:29 ACR BI-RADS Category 0: Incomplete 3340F PARENCHYMAL PATTERN: (A) - The breast(s) demonstrate(s) scattered fibroglandular densities. BI-RADS CATEGORY: (0) - 0 Ultrasound [id number] Immediate follow-up LATERALITY: (R)
== END 2023-10-04 14:46 | disposition home or self-care (01) ==
LOC: DI 14:45
PROVIDERS: ATTEND Physician Assistant
DX: N64.4 Mastodynia (principal)

== ENCOUNTER 2023-10-17 20:29 | Outpatient (CLI) | payer OTHER | END 2023-10-17 20:30 | disposition home or self-care (01) | LOC: SC 20:29 | PROVIDERS: ATTEND Nurse Practitioner Family | DX: G47.33 Obstructive sleep apnea (adult) (pediatric) (principal); E66.01 Morbid (severe) obesity due to excess calories; Z68.41 Body mass index [BMI] 40.0-44.9, adult | CPT/HCPCS: 95810 ==

== ENCOUNTER 2023-10-25 16:10 | Outpatient (CLI) | payer OTHER ==
--- NOTE | 2023-10-25 16:38 | Sleep Patient Instructions ---
Sleep Center Visit Summary - Patient Visit Information Reason for Visit: Sleep study follow-up - Patient Instructions Instructions Attached: CPAP Additional Instructions: You are being started on CPAP therapy with pressure setting at 4-15 cmH2O. You w ill need to call the sleep care office to set up your follow up once you have your CPAP machine to check compliance and response to therapy at that time. You may call the office with any concerns about pressure feeling too low or too much for adjustment, if needed. You should contact DME supplier for any questions or concerns about mask or equipment. Please call office to schedule a follow up appointment in the sleep care office one month after obtaining new device. - Clinic Information Contact: [facility] [address] [place] [address] [email or web address] T: [phone]
--- NOTE | 2023-10-25 16:43 | SLEEP CARE CONSULTATION ---
Information from patient questionnaire entered by More Macedo. I have reviewed and concur with the information entered by More Macedo. This document represents the service I personally performed and the decisions made by , Rosanna Gibson ARNP. History of Present Illness Service Date and Time: 10/25/2023 1610 Initial [place] Sleepiness Scale score: 10 (09/22/23) Current [place] Sleepiness Scale score: 16 (10/25/23) Additional HPI information: CK ELDER returns for follow up and results of the recently performed polysomnography. The sleep study done on 10/17/2023 showed mild obstructive sleep apnea with an average AHI of 6.2 and [place] oxygen saturation of 89%. I explained the pathophysiology behind obstructive sleep apnea. We then spent quite a bit of time discussing different treatment options. For mild obstructiv e sleep apnea, surgery and oral appliance are alternatives to nasal CPAP therapy but in moderate or severe cases, nasal CPAP is the most effective and reliable treatment. I reviewed the impact of weight changes on sleep apnea and strongly recommended losing weight. After some discussion, the patient opted to go with the nasal CPAP therapy. Nasal autoCPAP set at 4-15 cmH20 will be ordered with rationale explained. A manual titration study will be ordered if unable to find optimal pressure with office adjustments. I explained how CPAP machine works and what to expect when using the machine. Using CPAP every night in order to get used to it was emphasized. Patient advised to put CPAP mask on before getting into bed so as not to fall asleep without CPAP. To assist acclimation to CPAP use, it could also be used for a short time during day while reading or watching TV. The patient was instructed to call the CPAP supplier to discuss any mechanical problem that may occur. If the mask given is uncomfortable or is difficult to keep on through the night even with adjustment, contact the CPAP supplier as many will replace with another mask style if notified before 30 days. If snoring or perceives is not getting enough air or too much air from the machine, notify this office. Patient does not drink alcohol. Patient was cautioned about risks of drowsy driving until sleepiness symptoms resolve. Patient denies drowsy driving. Sleep Study - Results Type of Sleep Study: Polysomnography (COMPLETED 10/17/23) Prior sleep studies: Yes Year and Where: [employer] 2018 Polysomnography/Home Sleep Study results: IMPRESSION: The quality of the study is good. The patient had slightly reduced sleep efficiency due to sleep onset insomnia. The sleep architecture was abnormal for sleep fragmentation and reduced amount of time spent in REM sleep. Respiratory monitoring showed mild obstructive sleep apnea-hypopnea (AHI = 6.2) associated with frequent arousals, oxyhemoglobin desaturation and minimal hypoxia ([place] oxygen saturation of 89%). No significant sleep disordered breathing (supine AHI = 0.0; non-supine = 6.17). No audible snore. There was no significant periodic leg movement of sleep. Cardiac rhythm was normal sinus rhythm without significant arrhythmia. No abnormal behavior (parasomnia) observed during the night. Allergies and Home Medications Known drug allergies: No Drug allergies reviewed: Yes Home medication list reviewed: Yes (no changes) Allergy and home medication list: Allergies No Known Drug Allergies Allergy (Verified 10/25/23 16:12) Review of Systems Review of systems same as previous: Yes (NO CHANGE) Physical Exam Vital signs obtained and entered by: MORE Huffman MA Blood Pressure: 146/96 (RIGHT) Cuff size: wrist Heart Rate: 67 O2 Saturation: 99 Height: 5 ft 2 in Weight: 267 lb 9.6 oz Body Mass Index: 48.9 BMI Classification: Morbidly Obese Impression and Plan 1. Obstructive Sleep Apnea-Hypopnea Syndrome, mild, with lowest oxygen saturation of 89%. Obviously this is the cause of the patients symptoms of unrefreshed sleep, and excessive daytime sleepiness. Positive pressure therapy could benefit diabetes, insulin resistance and asthma. As mentioned above, the patient will be started on nasal autoCPAP therapy with pressure set at 4-15 cmH2 O. A manual titration study will be completed if unable to find optimal kaylyn tment pressure with office adjustments. Compliance guidelines also reviewed. A copy of compliance guidelines will be given for reference at check out. 2. Obesity, unspecified. Currently patients BMI is 48.9. Obesity increases the risk of apnea, CPAP pressure requirements and overall health risks especially cardiovascular and diabetes. Thus patient is advised to lose weight. * Nasal auto CPAP therapy, pressure at 4-15 cm H2O. * Attempt to lose weight. * Avoid alcohol consumption near bedtime. * Avoid supine sleep until using CPAP. * The patient is again cautioned about driving until sleepiness completely resolves. * Return one month after CPAP obtained. I will assess response to therapy and compliance at that time. Counseling Topics: Weight loss health impact Prescriptions: Auto CPAP Visit Type: In Office Time Spent with Patient (minutes): 22 Provider Statement: I spent 100% of the Face to Face Visit with the patient with greater than 50% spent counseling the patient and coordination of care.
[2023-10-25 16:51] VITALS: BP 146/96; O2SAT 99
== END 2023-10-25 16:11 | disposition home or self-care (01) ==
LOC: SC 16:10
PROVIDERS: ATTEND Nurse Practitioner Family
DX: G47.33 Obstructive sleep apnea (adult) (pediatric) (principal); E66.01 Morbid (severe) obesity due to excess calories; Z68.42 Body mass index [BMI] 45.0-49.9, adult
CPT/HCPCS: 99212; 99213